=== PATIENT | female | born 1980 | race Caucasian/White ===

== ENCOUNTER → 2020-09-27 11:00 | Outpatient (CLI) | payer BC, SELFPAY ==
[2020-06-21 15:19] VITALS: BMI 23.1
[2020-09-29 20:48] LABS: HPV APTIMA, High Risk Negative (Negative)
== END ==
PROVIDERS: Visit Provider Obstetrics & Gynecology
DX: Z12.4 Encounter for screening for malignant neoplasm of cervix (principal)
CPT/HCPCS: 87624; 88175; G0145

== ENCOUNTER 2021-05-26 10:50 | Emergency (ER) | payer BC, SELFPAY ==
[2021-05-26 10:51] VITALS: BP 127/88; PULSE 116; RESP 16; TEMP 36.2; O2SAT 96; BMI 24.0
--- NOTE | 2021-05-26 11:13 | EDS_ITS ---
HPI History of Present Illness Chief Complaint: Back Informant: patient Onset/Context/Timing Onset: Today (Just within the past 1-2 hours) Context: Sudden Onset Injury: - (While doing CrossFit) Timing: Continuous Quality: Aching Location: Lumbar (Right side without radiation into lower extremities) Current Severity: Moderate Maximum Severity: Severe Worsened by: improves with Movement Relieved by: - (Remaining still with ice against the affected area) Associated Symptoms Associated Symptoms: Negative for Numbness, Tingling, Radiation to Right Leg, Radiation to Left Leg, Abdominal Pain, Unable to Ambulate, Unable to Transfer, Urinary Retention, Urinary Incontinence, Constipation and Fecal Incontinence Narrative Narrative: Patient was doing exertion and a Cross[employer] class and she all of a sudden felt a pop with pain in her right low back without radiation. No history of back problems in the past. [facility] Medical History Abscess of chest Home Medications multivitamin 1 tab PO DAILY 06/21/20 [History Last Taken Unknown] cyclobenzaprine 10 mg PO TID PRN #20 tablet 05/26/21 [Rx Last Taken Unknown] naproxen 500 mg PO BID PRN #14 tab 05/26/21 [Rx Last Taken Unknown] tramadol 50 mg PO Q4H PRN PRN 2 Days #12 tab 05/26/21 [Rx Last Taken Unknown] Allergy/AdvReac Type Severity Reaction Status Date / Time No Known Allergies Allergy Verified 05/26/21 10:53 Family History Father Thyroid disorder Brother Thyroid disorder Surgical History History of incision and drainage Social History Smoking Status: Never smoker second hand exposure: No alcohol intake: current alcohol intake frequency: holidays/special occasions only substance use type: does not use caffeine: Yes what type of physical activity do you participate in: walking, running, aerobics and weight training frequency: 3-4 times per week ROS ROS ED Constitutional Constitutional ED: Denies chills or fever(s) Gastrointestinal Gastrointestinal: Denies abdominal pain, constipation, fecal incontinence, nausea or vomiting Genitourinary Genitourinary ED: Reports other Details: no urinary retention ; Denies abdominal discomfort or urinary incontinence Musculoskeletal Musculoskeletal: Reports as per HPI and back pain; Denies neck pain Integumentary Denies rash or wounds Neurologic Neurologic: Denies headache(s), paresthesias or weakness EXAM Physical Exam Const Vital Signs: 05/26/21 10:51 Temperature 97.2 F L Temperature Source Temporal Pulse Rate 116 H Respiratory Rate 16 Blood Pressure 127/88 H Blood Pressure Mean 101 Pulse Ox 96 Oxygen Delivery Method Room Air Positive well nourished and well developed General Appearance ED: well developed and NAD HEENT Negative for trauma or tenderness Eyes PERRL and EOMs intact bilaterally Neck full ROM and supple GI normal to inspection, nondistended, normoactive bowel sounds, soft to palpation and non-tender Back/Spine normal to inspection Back/Spine Narrative: Patient sitting with her hands on her knees in a chair uncomfortable without tenderness in the affected area right lumbosacral paraspinal musculature. Patient does not indicate pain at the SI joint area. No midline tenderness or step-off. Lumbar Spine / Lower Back: ROM limited, pain with ROM and straight leg raise negative bilaterally; Negative for lumbar spinal tenderness Extremity normal to inspection, full ROM and no pedal edema Neuro oriented x3 and no sensory deficits noted Sensorium / Orientation: alert Motor Exam: strength 5/5 throughout and clonus absent Deep Tendon Reflexes: Rt Patellar (L4): 2+, Lt Patellar (L4): 2+, Rt Ankle (S1): 2+ and Lt Ankle (S1): 2+ Deep Tendon Reflexes Back: Rt Patellar (L4): 2+, Lt Patellar (L4): 2+, Rt Ankle (S1): 2+ and Lt Ankle (S1): 2+ Plantar Reflex: Downgoing: bilateral Psych mental status grossly normal and thought process normal Skin no rashes or lesions noted and no wounds MDM MDM MDM Narrative Medical decision making narrative: Patient was given injections of Toradol and Norflex along with an oral Tupman, x-rays were obtained to ensure there are no step-offs or abnormalities; they were as below with spondylolisthesis L4-5, L5- S1. This is nonspecific. She has no radicular symptoms or findings. Will be discharged with medications for supportive care and outpatient follow-up as needed. Radiography Diagnostic Testing: Clinical Impression(s) from Imaging Studies Lumbar Spine X-Ray 05/26/21 11:24 IMPRESSION: Degenerative changes of the spine, as detailed above. Electronically Signed: Julian Willson MD at 11:56 EDT , Service support , Discharge Plan Triage Chief Complaint: Back ED Provider: Beto Enamorado Dx/Rx/DC Orders Clinical Impression: Acute lumbosacral myofascial strain Instructions: ED Back Sprain/Strain Prescriptions: New cyclobenzaprine [cyclobenzaprine] 10 MG tablet 10 mg PO TID PRN (Reason: Muscle Spasm) Qty: 20 RF: 0 tramadol 50 MG tablet 50 mg PO Q4H PRN PRN (Reason: Pain) 2 Days Qty: 12 RF: 0 naproxen 500 MG tablet 500 mg PO BID PRN Qty: 14 RF: 0 No Action multivitamin Tablet 1 tab PO DAILY RF: 0 Primary Care Provider: Kevin Kingston NP Referrals: Kevin Kingston NP, REFERRAL CLERK-C [Primary Care Provider] - 1 Week if not improving Disposition Disposition: Home, Self Care
[2021-05-26] MEDS: Orphenadrine 60 MG/2 ML Ampul IM (11:16)
[2021-05-26] MEDS: HYDROcodone Bitartrate/Apap 5/325 Tablet PO (11:16)
[2021-05-26] MEDS: Ketorolac 60 MG/2 ML Vial IM (11:16)
--- NOTE | 2021-05-26 11:24 | RAD_ITS ---
STUDY: X-RAY - LUMBAR SPINE REASON FOR EXAM: Female, 40 years old. Injury TECHNIQUE: 3 view(s) of the lumbar spine were obtained. COMPARISON: None FINDINGS: Normal lumbar lordosis. There is a minimal levoscoliosis of the lumbar spine. There is a normal alignment of the vertebrae. Mild degree of spondylolisthesis and disc space narrowing at the L4-L5 and L5-S1 levels. The soft tissue structures are unremarkable. RAD/Lumbar Spine 2 or 3 Views IMPRESSION: Degenerative changes of the spine, as detailed above. Electronically Signed: Julian Willson MD at 11:56 EDT , Service support ,
[2021-05-26] MEDS: Ondansetron ODT 4 MG Tablet 8 MG PO (12:56)
== END 2021-05-26 12:57 | disposition home or self-care (01) ==
PROVIDERS: Emergency Provider Emergency Medicine; PCP Nurse Practitioner Family
DX: S39.012A Strain of muscle, fascia and tendon of lower back, initial encounter (principal); X58.XXXA Exposure to other specified factors, initial encounter
CPT/HCPCS: 72100; 96372; 99283; A4216

== ENCOUNTER 2022-12-19 07:25 | Emergency (ER) | payer BC, SELFPAY ==
[2022-12-19 07:25] VITALS: BP 162/85; PULSE 158; RESP 18; TEMP 36.7; O2SAT 100; BMI 25.3
--- NOTE | 2022-12-19 07:32 | RAD_ITS ---
STUDY: X-RAY CHEST REASON FOR EXAM: Female, 42 years old. Tachycardia TECHNIQUE: Frontal view of the chest COMPARISON: None. FINDINGS: The lungs are clear. There are no pleural effusions. There is no pneumothorax. The heart is normal in size. The visualized osseous structures are within normal limits. RAD/Chest 1 View (Portable) IMPRESSION: No acute thoracic pathology. Electronically Signed: Josiah Gonzalez MD at 8:07 EDT ,
--- NOTE | 2022-12-19 07:34 | EX.ED.DYSGE1 ---
HPI History of Present Illness Chief Complaint: Palpitations Detail of Chief Complaint: Palpitations and racing heart Informant: patient and spouse/S.O. Narrative Narrative: Patient presents to the emergency department with palpitations that started this morning around 6 AM when her alarm went off. Patient describes a funny feeling. She denies chest pain. She does feel a little bit short of breath with activity. She denies recent travel or surgery. She did have 2 alcoholic beverages yesterday. She denies illicit drug use. Denies recent illness such as vomiting or diarrhea. No history of anxiety or panic attacks. Patient does have history of mitral valve prolapse and tricuspid regurgitation for which she has ultrasounds every several years to evaluate. Patient's last cardiac ultrasound was about 3 years ago. [facility] Medical History (Updated 12/19/22 @ 09:[address] Shelly Candelario DO) Abscess of chest Home Medications propranolol 10 mg tablet 10 mg PO TID #90 tabs 12/19/22 [Rx Last Taken Unknown] Allergy/AdvReac Type Severity Reaction Status Date / Time No Known Allergies Allergy Verified 12/19/22 07:28 Family History Father Thyroid disorder Brother Thyroid disorder Surgical History History of incision and drainage Social History Smoking Status: Never smoker second hand exposure: No alcohol intake: current alcohol intake frequency: holidays/special occasions only substance use type: does not use caffeine: Yes what type of physical activity do you participate in: walking, running, aerobics and weight training frequency: 3-4 times per week ROS ROS ED Review of Systems ROS Unobtainable: other Constitutional Constitutional ED: Reports lethargy; Denies chills, fever(s), sweats or weight loss Eyes Eyes: Denies blurry vision, change in vision or diplopia ENT ENT ED: Denies rhinorrhea or sore throat Cardiovascular Cardiovascular: Reports palpitations and racing heartbeat; Denies chest pain or orthopnea Respiratory/Chest Respiratory/Chest: Reports dyspnea and dyspnea on exertion; Denies cough, orthopnea or sputum Gastrointestinal Gastrointestinal: Denies abdominal pain, diarrhea, nausea or vomiting Genitourinary Genitourinary ED: Denies dysuria, hematuria or urinary frequency Musculoskeletal Musculoskeletal: Denies arthralgias, back pain, myalgias or neck pain Integumentary Denies abscess, Abrasions or rash Neurologic Neurologic: Denies headache(s) or weakness Psychiatric Psychiatric: Denies anxiety, depression or suicidal thoughts Endocrine Endocrinology: Denies polydipsia, polyphagia or polyuria Hematologic/Lymphatic Hematologic/Lymphatic: Denies easy bleeding, easy bruising or lymphadenopathy Allergic/Immunologic Allergic/Immunologic ED: Denies mouth swelling, tongue swelling or urticaria EXAM Physical Exam Const Vital Signs: 12/19/22 07:25 12/19/22 07:48 12/19/22 08:33 Temperature 98.1 F Temperature Source Temporal Pulse Rate 158 H 104 H Respiratory Rate 18 16 Respiratory Effort Normal Blood Pressure 162/85 H 115/71 Blood Pressure Mean 110 85 Pulse Ox 100 99 Oxygen Delivery Method Room Air Room Air Positive well nourished and well developed General Appearance ED: well developed and NAD HEENT Reports TM's clear and moist mucous membranes normocephalic and atraumatic; Negative for trauma or tenderness Tympanic Membrane ED: Yes TM's clear Eyes PERRL and EOMs intact bilaterally General Eye ED: Negative for pale conjunctiva or scleral icterus Neck no lymphadenopathy, supple and no JVD General: Negative for tenderness Chest Wall inspection of chest normal and palpation of chest normal Chest: Negative for tenderness Resp normal respiratory effort and clear to auscultation bilaterally Effort and Inspection: Negative for respiratory distress or pain with movement Auscultation: Negative for rhonchi, wheezes or diminished lung sounds Cardio regular rhythm, S1 normal heart sound, S2 normal heart sound and no murmurs Rate: tachycardic Peripheral Pulses: pulses 2+ throughout GI normal to inspection, nondistended, normoactive bowel sounds, soft to palpation, non-tender, non-distended and no masses Back/Spine no CVA tenderness and no thoracic nor lumbar tenderness Extremity normal to inspection General Extremety ED: Negative for edema General Extremity: Negative for edema Neuro oriented x3, CN's II-XII intact bilaterally, no sensory deficits noted and gait normal Sensorium / Orientation: awake, alert, oriented to person, oriented to place and oriented to time Motor Exam: strength 5/5 throughout and strength abnormal Psych mental status grossly normal Skin no rashes or lesions noted and no wounds MDM MDM MDM Narrative Medical decision making narrative: Patient presents with tachycardia. In the differential would be A-fib versus SVT versus other dysrhythmia. Entertain possibility of PE however she really has no significant history for PE or risk factors. Patient placed on a shelter monitor on arrival. EKG obtained showed sinus tachycardia with a rate of 131 bpm with no acute ST segment changes. CBC with differential was unremarkable. Chemistries were unremarkable other than a slightly depressed potassium of 3.2 for which I did give her 40 mEq of potassium chloride p.o. Patient had a normal D-dimer therefore I feel PE is ruled out. With a normal H&H and no signs of bleeding I do not feel her symptoms related to anemia. Troponin was normal. Chest x-ray was normal. I did add a test which was negative and I also added a TSH. TSH came back low at less than 0.01. On further questioning patient states that she actually thinks she has had fast heart rates for over a month as her 's mention it when he was laying in bed next to her. Patient also has had some heat intolerance. She has a family history of hypothyroidism. Case discussed with Dr. Kenneth Gooden of endocrinology who asked that I start patient on propranolol. She will follow-up patient in the office. Lab Data Attestation: I reviewed the patient's lab results. Labs: Laboratory Results - last 24 hr 12/19/22 12/19/22 12/19/22 07:40 07:40 07:40 WBC 5.0 RBC 5.16 Hgb 14.7 Hct 43.4 MCV 84.1 MCH 28.5 MCHC 33.9 RDW Std Deviation 39.2 RDW Coeff of Shoaib 12.8 Plt Count 243 MPV 8.5 Immature Gran % (Auto) 0.200 Neut % (Auto) 65.8 Lymph % (Auto) 21.9 Travis % (Auto) 9.7 Eos % (Auto) 2.0 Baso % (Auto) 0.4 Absolute Neuts (auto) 3.3 Absolute Lymphs (auto) 1.09 Nucleated RBC % 0 D-Dimer Quant (PE/DVT) 0.36 Sodium 144 Potassium 3.2 L Chloride 111 H Carbon Dioxide 23.0 Anion Gap 10 BUN 8 Creatinine 0.58 Estim Creat Clear Calc 111.34 Est GFR (MDRD) Af Amer 147 Est GFR (MDRD) Non-Af 121 BUN/Creatinine Ratio 13.7 Glucose 112 H Calcium 8.8 Troponin I High Sens 6 TSH Serum , Qual 12/19/22 12/19/22 08:10 08:10 WBC RBC Hgb Hct MCV MCH MCHC RDW Std Deviation RDW Coeff of Shoaib Plt Count MPV Immature Gran % (Auto) Neut % (Auto) Lymph % (Auto) Travis % (Auto) Eos % (Auto) Baso % (Auto) Absolute Neuts (auto) Absolute Lymphs (auto) Nucleated RBC % D-Dimer Quant (PE/DVT) Sodium Potassium Chloride Carbon Dioxide Anion Gap BUN Creatinine Estim Creat Clear Calc Est GFR (MDRD) Af Amer Est GFR (MDRD) Non-Af BUN/Creatinine Ratio Glucose Calcium Troponin I High Sens TSH < 0.01 L Serum , Qual NEGATIVE Radiography Diagnostic Testing: Clinical Impression(s) from Imaging Studies Chest X-Ray 12/19/22 07:32 IMPRESSION: No acute thoracic pathology. Electronically Signed: Josiah Gonzalez MD at 8:07 EDT , 1 view chest x-ray obtained interpreted by myself as no evidence of infiltrate or pneumothorax or acute disease process. Radiology in agreement. EKG Initial EKG: Attestation: I personally reviewed and interpreted this EKG as follows: Comments: Sinus tachycardia with a rate of 131 bpm with no acute ST segment changes. Discharge Plan Triage Chief Complaint: Palpitations ED Provider: Shelly Candelario Dx/Rx/DC Orders Clinical Impression: Hyperthyroidism, Tachycardia Instructions: ED Hyperthyroidism, ED Palpitations, ED Tachycardia: PAT Prescriptions: New propranolol 10 mg tablet 10 mg PO TID Qty: 90 0RF Primary Care Provider: Kevin Kingston NP Referrals: Rene Gooden MD [Med Staff - Courtesy Staff] - As soon as possible Kevin Kingston NP, MANAGER ACCESS-C [Primary Care Provider] - Disposition Disposition: Home, Self Care
--- NOTE | 2022-12-19 07:35 | NURSING ---
NO OLD EKGS
[2022-12-19] MEDS: 0.9% Normal Saline 1,000 ML 150 ML IV (07:44)
[2022-12-19 07:47] LABS: Absolute Lymphocyte Count 1.09 X10^3/uL (0.83-4.51); Absolute Neutrophil Count 3.3 X10^3/uL (2.0-7.7); Basophil# 0.02 X10^3/uL; Basophil% 0.4 % (0-1); Hematocrit 43.4 % (37-47); Hemoglobin 14.7 g/dL (12.0-15.0); Lymphocyte # 1.09 X10^3/ul (0.83-4.51); Lymphocyte % 21.9 % (19-41); Mean Corp Hgb Conc 33.9 g/dL (32-36); Mean Corpuscular Hgb 28.5 pg (27.0-32.0); Mean Corpuscular Volume 84.1 fL (81-99); Mean Platelet Vol. 8.5 fl (6.2-12.0); Monocyte# 0.48 X10^3/uL; Monocyte% 9.7 % (0-10); NRBC Flagged by Analyzer 0 % (0-5); Neutrophil # 3.27 X10^3/uL (2.7-7.7); Neutrophil % 65.8 % (47-70); Platelet Count 243 K/mm3 (150-450); RBC Distribution Width CV 12.8 % (11.6-14.6); RBC Distribution Width SD 39.2 fl (35.1-43.9); Red Blood Count 5.16 M/mm3 (4.2-5.4)
[2022-12-19 07:58] LABS: D-Dimer Quantitative (DVT/PE) 0.36 FEU/ug/m (0.27-0.49)
[2022-12-19 08:04] LABS: Anion Gap 10 (5-15); BUN 8 mg/dL (7-18); BUN/Creat Ratio 13.7 RATIO (10-20); Calcium,Total 8.8 mg/dL (8.5-10.1); Chloride 111 mmol/L (98-107); Creatinine, Serum 0.58 mg/dL (0.55-1.02); EST Glomerular Filtration Rate 121 mL/min (>60); Est Glom Filt Rate - Afr Amer 147 mL/min (>60); Estimated Creatinine Clearance 111.34 ml/min; Glucose 112 mg/dL (74-106); Potassium 3.2 mmol/L (3.5-5.1); Sodium Level 144 mmol/L (136-145); Troponin-I HS 6 pg/mL (3.0-54.0)
[2022-12-19] MEDS: Potassium Chloride Oral Tablet 20 MEQ 40 MEQ PO (08:20)
[2022-12-19 08:30] LABS: Internal QC Validated? YES +Cl - CLEAR BKGD; Pregnancy, Serum, hCG Quali. NEGATIVE Negative
[2022-12-19 08:33] VITALS: BP 115/71; PULSE 104; RESP 16; O2SAT 99
[2022-12-19 08:51] LABS: Thyroid Stim Hormone (TSH) < 0.01 uIU/mL (0.358-3.74)
[2022-12-19 09:56] VITALS: BP 118/74; PULSE 109; RESP 16; O2SAT 99
== END 2022-12-19 09:56 | disposition home or self-care (01) ==
PROVIDERS: Emergency Provider Emergency Medicine; PCP Nurse Practitioner Family; Visit Provider Emergency Medicine
DX: E05.90 Thyrotoxicosis, unspecified without thyrotoxic crisis or storm (principal); R00.2 Palpitations; E87.6 Hypokalemia; I08.1 Rheumatic disorders of both mitral and tricuspid valves; R06.00 Dyspnea, unspecified
CPT/HCPCS: 71045; 80048; 84443; 84484; 84703; 85025; 85379; 93005; 99285; J7030; A4216

== ENCOUNTER → 2023-01-17 | Outpatient (CLI) | payer BC, SELFPAY ==
[2023-01-17 10:44] LABS: T4 Free Direct 1.11 ng/dL (0.76-1.46); Thyroid Stim Hormone (TSH) < 0.01 uIU/mL (0.358-3.74)
== END | disposition home or self-care (01) ==
LOC: LAB 09:02
PROVIDERS: PCP Nurse Practitioner Family; Referring Provider Internal Medicine Endocrinology, Diabetes & Metabolism; Visit Provider Internal Medicine Endocrinology, Diabetes & Metabolism
DX: E05.90 Thyrotoxicosis, unspecified without thyrotoxic crisis or storm (principal)
CPT/HCPCS: 36415; 84439; 84443; 84481

== ENCOUNTER → 2023-02-12 | Outpatient (CLI) | payer BC, SELFPAY ==
[2023-02-12 17:35] LABS: Free T3 2.9 pg/mL (2.18-3.98); T4 Free Direct 0.85 ng/dL (0.76-1.46); Thyroid Stim Hormone (TSH) < 0.01 uIU/mL (0.358-3.74)
== END | disposition home or self-care (01) ==
PROVIDERS: PCP Nurse Practitioner Family; Referring Provider Internal Medicine Endocrinology, Diabetes & Metabolism; Visit Provider Internal Medicine Endocrinology, Diabetes & Metabolism
DX: E05.90 Thyrotoxicosis, unspecified without thyrotoxic crisis or storm (principal)
CPT/HCPCS: 36415; 84439; 84443; 84481

== ENCOUNTER → 2023-03-30 | Outpatient (CLI) | payer BC, SELFPAY ==
[2023-03-30 15:17] LABS: Free T3 2.1 pg/mL (2.18-3.98); T4 Free Direct 0.68 ng/dL (0.76-1.46); Thyroid Stim Hormone (TSH) 0.54 uIU/mL (0.358-3.74)
== END | disposition home or self-care (01) ==
LOC: LAB 14:05
PROVIDERS: PCP Nurse Practitioner Family; Referring Provider Internal Medicine Endocrinology, Diabetes & Metabolism; Visit Provider Internal Medicine Endocrinology, Diabetes & Metabolism
DX: E05.90 Thyrotoxicosis, unspecified without thyrotoxic crisis or storm (principal)
CPT/HCPCS: 36415; 84439; 84443; 84481

== ENCOUNTER → 2023-04-23 | Outpatient (CLI) | payer BC, SELFPAY ==
[2023-04-23 12:50] LABS: Vitamin B12 688 pg/mL (211-911)
[2023-04-23 13:00] LABS: Free T3 2.3 pg/mL (2.18-3.98); T4 Free Direct 0.79 ng/dL (0.76-1.46); Thyroid Stim Hormone (TSH) 1.48 uIU/mL (0.358-3.74)
== END | disposition home or self-care (01) ==
LOC: LAB 11:29
PROVIDERS: PCP Nurse Practitioner Family; Referring Provider Internal Medicine Endocrinology, Diabetes & Metabolism; Visit Provider Internal Medicine Endocrinology, Diabetes & Metabolism
DX: E05.90 Thyrotoxicosis, unspecified without thyrotoxic crisis or storm (principal); R20.2 Paresthesia of skin
CPT/HCPCS: 36415; 82607; 84439; 84443; 84481

== ENCOUNTER → 2023-06-18 | Outpatient (CLI) | payer BC, SELFPAY ==
[2023-06-18 15:07] LABS: Free T3 2.7 pg/mL (2.18-3.98); T4 Free Direct 0.94 ng/dL (0.76-1.46); Thyroid Stim Hormone (TSH) 0.73 uIU/mL (0.358-3.74)
== END | disposition home or self-care (01) ==
LOC: LAB 14:11
PROVIDERS: PCP Nurse Practitioner Family; Referring Provider Internal Medicine Endocrinology, Diabetes & Metabolism; Visit Provider Internal Medicine Endocrinology, Diabetes & Metabolism
DX: E05.00 Thyrotoxicosis with diffuse goiter without thyrotoxic crisis or storm (principal)
CPT/HCPCS: 36415; 84439; 84443; 84481

== ENCOUNTER → 2023-08-13 | Outpatient (CLI) | payer BC, SELFPAY ==
[2023-08-13 10:02] LABS: Free T3 2.2 pg/mL (2.18-3.98); T4 Free Direct 0.86 ng/dL (0.76-1.46); Thyroid Stim Hormone (TSH) 2.61 uIU/mL (0.358-3.74)
== END | disposition home or self-care (01) ==
LOC: LAB 09:01
PROVIDERS: PCP Nurse Practitioner Family; Referring Provider Internal Medicine Endocrinology, Diabetes & Metabolism; Visit Provider Internal Medicine Endocrinology, Diabetes & Metabolism
DX: E05.90 Thyrotoxicosis, unspecified without thyrotoxic crisis or storm (principal)
CPT/HCPCS: 36415; 84439; 84443; 84481

== ENCOUNTER → 2024-01-07 | Outpatient (CLI) | payer BC, SELFPAY ==
[2024-01-07 11:39] LABS: Free T3 2.9 pg/mL (2.18-3.98); T4 Free Direct 0.98 ng/dL (0.76-1.46); Thyroid Stim Hormone (TSH) 1.55 uIU/mL (0.358-3.74)
== END | disposition home or self-care (01) ==
LOC: LAB 09:26
PROVIDERS: PCP Nurse Practitioner Family; Referring Provider Internal Medicine Endocrinology, Diabetes & Metabolism; Visit Provider Internal Medicine Endocrinology, Diabetes & Metabolism
DX: E05.00 Thyrotoxicosis with diffuse goiter without thyrotoxic crisis or storm (principal)
CPT/HCPCS: 36415; 84439; 84443; 84481

== ENCOUNTER → 2024-07-07 | Outpatient (CLI) | payer BC, SELFPAY ==
[2024-07-07 11:13] LABS: Free T3 2.8 pg/mL (2.18-3.98); T4 Free Direct 1.08 ng/dL (0.76-1.46)
== END | disposition home or self-care (01) ==
LOC: LAB 08:56
PROVIDERS: PCP Nurse Practitioner Family; Referring Provider Internal Medicine Endocrinology, Diabetes & Metabolism; Visit Provider Internal Medicine Endocrinology, Diabetes & Metabolism
DX: E05.00 Thyrotoxicosis with diffuse goiter without thyrotoxic crisis or storm (principal)
CPT/HCPCS: 36415; 84439; 84443; 84481

== ENCOUNTER → 2024-11-28 | Outpatient (CLI) | payer BC, SELFPAY ==
--- NOTE | 2024-11-28 09:04 | BI_ITS ---
EXAM: DIAG MAMM W/CAD, BILAT; BREAST LIMITED UNILATERAL; BILAT BRST ALLI STAND ALONE 11/28/2024 CLINICAL HISTORY: 44-year-old female presents with palpable concern in the right breast. No family history of breast cancer. TECHNIQUE: Bilateral Diagnostic digital breast tomosynthesis with 2D and 3D images. Computer aided detection. Also, targeted right breast ultrasound was performed. COMPARISON: Baseline examination, no priors. FINDINGS: MAMMOGRAM: TISSUE DENSITY: The breast tissue is heterogenously dense, which may obscure small masses. Right breast: There is a triangle skin marker indicating the area of palpable concern in the right breast. Underlying the skin marker is an circumscribed round mass. Also, there are multiple circumscribed masses scattered throughout the right breast. There are a mass with associated coarse calcifications in the upper-outer right breast at posterior depth. During the examination, the patient had yellowish right nipple discharge. Left breast: There are multiple circumscribed masses scattered throughout the left breast. Otherwise, there are no suspicious findings in the left breast. ULTRASOUND: Ultrasound performed of the area of patient's palpable concern corresponds to a cyst at 11 o'clock 2 cm from the nipple, measuring 3.3 x 1.8 x 1.7 cm. There is a oval circumscribed hypoechoic in the right breast at 10 o'clock 5 cm from the nipple, measuring 1.3 x 1.0 x 0.6 cm. This may correlate to the mass with coarse calcifications in the upper-outer right breast visualized lies mammographically. Also, there is a hypoechoic mass in the retroareolar 3 o'clock right breast measuring 1.0 x 0.6 x 0.6 cm. There are multiple dilated ducts in the retroareolar right breast without evidence of intraductal mass or debris. BI/Bilat Brst Alli Stand Alone IMPRESSION: 1. The patient's area of palpable concern in the right breast correlates to a benign cyst. 2. Probably benign masses in the right breast at 10 o'clock 5 cm from the nipp le and 3 o'clock retroareolar. Recommend short interval diagnostic ultrasound of the right breast with in six-months for furth er evaluation. 3. Dilated ducts in the retroareolar right breast are benign. OVERALL FINAL ASSESSMENT: BIRADS 3 PROBABLY BENIGN. RECOMMENDATION: Short interval follow-up. A letter with findings and recommendations will be mailed to the patient. Reading Location: [id number]
== END | disposition home or self-care (01) ==
PROVIDERS: Referring Provider Nurse Practitioner Women's Health; Visit Provider Nurse Practitioner Women's Health
DX: N63.10 Unspecified lump in the right breast, unspecified quadrant (principal)
CPT/HCPCS: 76642; 77062; 77066; G0279

== ENCOUNTER → 2024-12-02 | Outpatient (CLI) | payer BC, SELFPAY ==
[2024-12-05 13:08] LABS: HPV APTIMA, High Risk Negative (Negative)
== END | disposition home or self-care (01) ==
LOC: LABSPEC 15:38
PROVIDERS: Referring Provider Advanced Practice Midwife; Visit Provider Advanced Practice Midwife
DX: Z12.4 Encounter for screening for malignant neoplasm of cervix (principal)
CPT/HCPCS: 87624; 88175; G0145

== ENCOUNTER → 2024-12-12 | Outpatient (CLI) | payer BC, SELFPAY ==
[2024-12-14 08:08] LABS: PROLACTIN 14.5 ng/mL (4.8-33.4)
== END | disposition home or self-care (01) ==
LOC: LAB 09:01
PROVIDERS: Referring Provider Nurse Practitioner Women's Health; Visit Provider Nurse Practitioner Women's Health
DX: N64.52 Nipple discharge (principal)
CPT/HCPCS: 36415; 84146

== ENCOUNTER → 2025-01-05 | Outpatient (CLI) | payer BC, SELFPAY ==
[2025-01-05 11:07] LABS: Free T3 3.3 pg/mL (2.18-3.98)
--- OUTSIDE RECORDS SUMMARY | 2025-01-05 21:12 | XMS RPT_ITS | CCD ---
Author Organization [facility] [employer]ini[employer] Care Team Providers Care Coding Quality Analyst Name Role Phone Vashti WIDE AREA NETWORK ENGINEER, WIDE AREA NETWORK ENGINEER-C Kevin Cordero Primary Care Pr ovider Vashti WIDE AREA NETWORK ENGINEER, WIDE AREA NETWORK ENGINEER-C Kevin Cordero Referring Provi ruth ann Dr. Rene Gooden Attending Provider Kevin Kingston CNP Primary Care Provider [phone] ARNOL LEONARD Attending Unavailable KEVIN KINGSTON Primary Care Unavailable Vashti WIDE AREA NETWORK ENGINEER, WIDE AREA NETWORK ENGINEER-C Kevin Cordero Primary Care Pr ovider Vashti WIDE AREA NETWORK ENGINEER, WIDE AREA NETWORK ENGINEER-C Kevin Cordero Referring Provi ruth ann Dr. Rene Gooden Attending Provider Vashti WIDE AREA NETWORK ENGINEER, WIDE AREA NETWORK ENGINEER-C Kevin Cordero Primary Care Pr ovider Vashti WIDE AREA NETWORK ENGINEER, WIDE AREA NETWORK ENGINEER-C Kevin Cordero Referring Provi ruth ann Dr. Rene Gooden Attending Provider Vashti WIDE AREA NETWORK ENGINEER-CKevin Primary Care Provi ruth ann Vashti WIDE AREA NETWORK ENGINEER-CKevin Referring Provider Roula Miranda Attending Provider Roula Miranda Referring Provider Care Physician, No Primary Primary Care Provider Unavailable Francie Nuñez CNM Attending Provider [phone] Francie Nuñez CNM Referring Provider [phone] Kevin Kingston NP Referring Unav ailable Care Physician, No Primary Primary Care Unava ilable Francie Nuñez Attending Unavailable Rene Gooden Attending Unavailable [place] WIDE AREA NETWORK ENGINEER, Kevin Cordero Referring Unav ailable [place] WIDE AREA NETWORK ENGINEER, Kevin Cordero Primary Care Unav ailable Giacomo, Rene Attending Unavailable [place] WIDE AREA NETWORK ENGINEER, Kevin Cordero Referring Unav ailable Vashti WIDE AREA NETWORK ENGINEER, Kevin Cordero Primary Care Unav ailable Giacomo, Rene Attending Unavailable [place] WIDE AREA NETWORK ENGINEER, Kevin Cordero Referring Unav ailable Care Physician, No Primary Primary Care Unava ilable Morena WIDE AREA NETWORK ENGINEER, Roula Attending Unavailable [place] WIDE AREA NETWORK ENGINEER, Kevin Cordero Referring Unav ailable [place] WIDE AREA NETWORK ENGINEER, Kevin Cordero Primary Care Unav ailable Giacomo, Rene Attending Unavailable Giacomo, Rene Referring Unavailable Vashti WIDE AREA NETWORK ENGINEER, Kevin Cordero Primary Care Unav ailable [place] WIDE AREA NETWORK ENGINEER, Roula Attending Unavailable Morena WIDE AREA NETWORK ENGINEER, Roula Referring Unavailable Care Physician, No Primary Primary Care Unava ilable Joaquin, Francie Attending Unavailable Joaquin, Francie Referring Unavailable Care Physician, No Primary Primary Care Unava ilable [place]na WIDE AREA NETWORK ENGINEER, Roula Attending Unavailable [place] WIDE AREA NETWORK ENGINEER, Roula Referring Unavailable Care Physician, No Primary Primary Care Unava ilable , Rene Attending Unavailable , Rene Referring Unavailable Vashti WIDE AREA NETWORK ENGINEER, Kevin Cordero Primary Care Unav ailable King LEONIE, Dr. López Attending Provider Medications Current Medications Medication Drug Class(es) Dates Sig (Normalized) Sig (Original) methIMAzole 5 mg oral tablet (20 sources) Thyroid Hormone Synthesis Inhibitor Start: 04-02-2023 End: 01-05-2025 Methimazole 5 mg tablet Active 5 mg PO .Sun-SundayJanuary 05, 2025 8:41am Start: 12-25-2022 End: 04-02-2023 take 1 tablet by mouth once daily Methimazole 10 mg tablet Discontinued 10 mg PO DAILY 45 February 27, 2023 12:48pm April 02, 2023 8:42am take 1 tablet by preeti th three times daily methIMAzole (TAPAZOLE) 10 mg tablet Take 10 mg by mouth three times daily. 0 Active Comment on above: Take 10 mg by mouth three times daily. Multivitamin tablet (5 sources) Start: 11-11-2024 Multivitamin tablet Active 1 {tbl} PO EVERY MORNING November 11, 2024 12:00am Completed/Discontinued Medications Medication Drug Class(es) Dates Sig (Normalized) Sig (Original) levoFLOXacin 500 mg oral tablet (1 source) Quinolone Antimicrobial Start: 02-20-2023 take 1 tablet by mouth once daily levoFLOXacin (LEVAQUIN) 500 mg tablet Take 1 tablet by mouth once daily. 10 tablet 0 02/20/2023 Active Comment on above: Take 1 tablet by preeti th once daily. propranolol hydrochloride 10 mg oral tablet (10 sources) beta-Adrenergic Brandee Start: 12-19-2022 End: 04-02-2023 take 1 tablet by mouth three times daily Propranolol 10 mg tablet Discontinued 10 mg PO THREE TIMES A DAY 90 December 19, 2022 12:00am April 02, 2023 8:26am sulfamethoxazole 400 mg / trimethoprim 80 mg oral tablet (1 source) Dihydrofolate Reductase Inhibitor Antibacterial, Sulfonamide Antimicrobial End: 02-20-2023 take 1 tablet by mouth twice daily sulfamethoxazole- trimethoprim (BACTRIM) 400-80 mg per tablet Take 1 tablet by mouth twice daily. Infected sebaceous cyst 0 02/20/2023 Discontinued (Course of therapy completed) Comment on above: Take 1 tablet by preeti twice daily. Infected sebaceous cyst Problems Problem Classification Problem Date Documented Date Episodic/Chronic Cardiac dysrhythmias (10 sources) Tachycardia; Translations: [Tachycardia, unspecified] 12-19-2022 Episodic Nonmalignant breast conditions (17 sources) Discharge from the breast; Translations: [Nipple discharge] Onset: 12-02-2024 12-01-2024 Episodic Comment on above: rpt R diag mammo and US 6mo per MH Other nervous system disorders (8 sources) Paresthesia; Translations: [Paresthesia of skin] 04-02-2023 Episodic Other nervous system disorders (2 sources) Paresthesia of skin; Translations: [Disturbance of skin sensation] 04-02-2023 Episodic Other screening for suspected conditions (not mental disorders or infectious disease) (1 source) Encounter for screening for malignant neoplasm of cervix; Translations: [Encounter for screening for malignant neoplasm of cervix] Onset: 12-05-2024 Episodic Pleurisy; pneumothorax; pulmonary collapse (10 sources) Abscess of thorax; Translations: [Pyothorax without fistula] 06-21-2020 Episodic Residual codes; unclassified (10 sources) Past history of procedure; Translations: [Other specified postprocedural states] 06-21-2020 Episodic Comment on above: Chest lesion- 2017re current lesion- 06/21/2020 Skin and subcutaneous tissue infections (1 source) Cellulitis and abscess of trunk; Translations: [Cellulitis of trunk, unspecified] 02-20-2023 Episodic Sprains and strains (10 sources) Lower back injury; Translations: [Strain of muscle, fascia and tendon of lower back, initial encounter] 06-03-2021 Episodic Thyroid disorders (20 sources) Hyperthyroidism; Translations: [Thyrotoxicosis, unspecified without thyrotoxic crisis or storm] Onset: 08-08-2024 12-19-2022 Chronic Results Test Name Value Interpretation Reference Range Facility PROLACTIN 4465on 12-14-2024 PROLACTIN 14.5 ng/mL Normal 4.8-33.4 [facility] Comment on above: Result Comment: Perf ormed at: [facility] [address] [id number] Drying Machine Receiver: Konstantin Jones PhD, Phone: [phone] Performed By: #### L 3100.5400 ####[facility] [address] [place], [address] Serum or plasma prolactin me asurement (mass/volume)Ordered By: Roula Berg on 12-12-2024 Prolactin [Mass/Vol] 14.5 ng/mL 4.8-33.4 [facility] Comment on above: Performed at: [facility] [address] [id number] Director: Konstantin Jones PhD, Phone: [phone] PAP IG HPV APTIMA 16/18,45on 12-05-2024 ADEQ Comment Normal . [facility] Comment on above: Order Comment: Speci men Comment: [id number] Comment: No. of containers..01 ThinPrep Vial Result Comment: Sati sfactory for evaluation. No endocervical component is identified. Performed By: #### L 7400.0280 ####[facility] [address] [place], [address] COMM . Normal . [facility] Comment on above: Order Comment: Speci men Comment: [id number] Comment: No. of containers..01 ThinPrep Vial Performed By: #### L 7400.0280 ####[facility] [address] [place], [place], [id number] COMMENT Comment Normal . [facility] Comment on above: Order Comment: Speci men Comment: [id number] Comment: No. of containers..01 ThinPrep Vial Result Comment: This liquid based ThinPrep(R) pap test was screened with the use of an image guided system. Performed By: #### L 7400.0280 ####[facility] [address] [place], [place], [id number] DIAG Comment Normal . [facility] Comment on above: Order Comment: Speci men Comment: [id number] Comment: No. of containers..01 ThinPrep Vial Result Comment: NEGA TIVE FOR INTRAEPITHELIAL LESION OR MALIGNANCY. Performed By: #### L 7400.0280 ####[facility] [address] [place], [address] HPV APTIMA, HR Negative Normal Negative [facility] Comment on above: Order Comment: Speci men Comment: [id number] Comment: No. of containers..01 ThinPrep Vial Result Comment: This nucleic acid amplification test detects fourteen high- risk HPV types (16,18,31,33,35,39,45,51,52,56,58,59,66,68) without differentiation. Performed By: #### L 7400.0280 ####[facility] [address] [place], [address] HPV Doreen Rfx Comment Normal . [facility] Comment on above: Order Comment: Speci men Comment: [id number] Comment: No. of containers..01 ThinPrep Vial Result Comment: Crit eria not met, HPV Genotype not performed. Performed at: [address] [id number] Drying Machine Receiver: Yadira Ng MD, Phone: [phone] Performed at: =[address] [id number] Drying Machine Receiver: Yadira Ng MD, Phone: [phone] Performed By: #### L 7400.0280 ####[facility] [address] [place], [place], [address] PAPSMR Comment Normal . [facility] Comment on above: Order Comment: Speci men Comment: [id number] Comment: No. of containers..01 ThinPrep Vial Result Comment: The Pap smear is a screening test designed to aid in the detection of premalignant and malignant conditions of the uterine cervix. It is not a diagnostic procedure and should not be used as the sole means of detecting cervical cancer. Both false-positive and false-negative reports do occur. Performed By: #### L 7400.0280 ####[facility] [address] [place], [place], [id number] PERFORM Comment Normal . [facility] Comment on above: Order Comment: Speci men Comment: [id number] Comment: No. of containers..01 ThinPrep Vial Result Comment: Fermin Blunt, Paid Search Specialist (ASCP) Performed By: #### L 7400.0280 ####[facility] [address] [place], [place], [address] Cervical or vaginal specimen microscopic examination by liquid based cytology (reportOrdered By: Francie Nuñez on 12-02-2024 Cytology report Cyto stain.thin prep Doc (Cvx/Vag) Comment . [facility] Comment on above: Criteria not met, HP V Genotype not performed.Performed at: [address] [id number] Director: Yadira Ng MD, Phone: [phone] at: =[address], [place], [place] [id number] Director: Yadira Ng MD, Phone: [phone] Cervical or vagninal specime n microscopic examination by cytology stain (reported asOrdered By: Francie Nuñez on 12-02-2024 Cytology report Cyto stain Doc (Cvx/Vag) Comment . [facility] Comment on above: The Pap smear is a s creening test designed to aid in thedetection of premalignant and malignant conditions of theuterine cervix. It is not a diagnostic procedure andshould not be used as the sole means of detecting cervicalcancer. Both false-positive and false-negative reports dooccur. Detection in cervical specim en of any of human papilloma virus (HPV) 16, 18, 31, 33,Ordered By: Francie Nuñez on 12-02-2024 HPV 16+18+31+33+35+39+45+5 1+52+56+58+59+66+68 DNA Probe+sig amp Ql (Cvx) Negative Negative [facility] Comment on above: This nucleic acid am plification test detects fourteen high- risk HPV types (16,18,31,33,35,39,45,51,52,56,58,59,66,68)without differentiation. Laboratory - CytologyOrdered By: Francie Nuñez on 12-02-2024 Paid Search Specialist Cyto stain Nom (Cvx/Vag) [ID] Comment . [facility] Comment on above: Mohamud Blunt, Paid Search Specialist (ASCP) Laboratory - Miscellaneous t estsOrdered By: Francie Nuñez on 12-02-2024 Service comment (Unsp spec) [Interp] . . [facility] No Panel InformationOrdered By: Francie Nuñez on 12-02-2024 Pap Smear Specimen Adequacy Comment . [facility] Comment on above: Satisfactory for guevara luation. No endocervical component is identified. 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 Loader Required: No Is patient in pain?: No Allergies No Known Allergies Allergy (Verified 12/02/24 13:50) Medications ???Medication ???Instructions ???Recorded ???Confirmed ???Type methimazole 5 mg tablet 5 mg PO .Sun-Sunday #90 tabs 12/02/24 Rx multivitamin 1 tab PO QAM 11/11/24 12/02/24 His tory Is last menstrual period known: Yes Last Menstrual Period: 11/25/24 Post menopausal: No Patient : No : No Control Method: vasectomy PFSH Medical History Paresthesias Thyrotoxicosis Abscess of chest Surgical History History of incision and drainage Family History Father Thyroid disorder Brother Thyroid disorder Social History household members: spouse current occupational status: employed current occupation: [employer] Smoking Status: Never smoker second hand exposure: No alcohol intake: current alcohol intake frequency: holidays/special occasions only substance use type: does not use caffeine: Yes what type of physical activity do you participate in: walking, running, aerobics and weight training frequency: 3-4 times per week seatbelt use: always do you feel safe at home: Yes additional social history: - [employer] History 2 Elective abortions Hx Para 2 Spontaneous abortions Hx # Term Pregnancies Ectopic pregnancies Hx # Pregnancies Multiple births # of living children 2 Past Pregnancies Del. Date Name GA/Weeks Outcome Route Bth Weight Gen Labor Lgth Anesthesia Del Locatn Provider FOB Louise Love HPI Encounter for routine gynecological examination Details: YUDITH PERALES is a 44 year old who presents for annual exam. NO concerns-will be getting repeat imaging in 6 months for right breast mass follow up. Last PAP: 2020; normal. HPV neg. History of abnormal PAP: no. Last mammogram: 2024; benign cyst. History of abnormal mammogram: no. Colon cancer screening: age 47. Other preventative health care screenings: PCP. Female Reproductive History Last Menstrual Period: 11/25/24 Cycle Length: 21-35 Bleeding Duration: 3 Questions: metorrhagia: Yes, sexually active: Yes, dyspareunia: No and PCB: No Menopausal Symptoms: Yes hot flashes and Yes night sweats ROS Const Constitutional: Reports system reviewed and no additional complaints, except as documented and night sweats Cardio Card: Reports system reviewed and no additional complaints, except as documented Resp Resp: Reports system reviewed and no additional complaints, except as documented GI GI: Reports system reviewed and no additional complaints, except as documented : Reports system reviewed and no additional complaints, except as documented and hot flashes; Denies difficulty voiding, dysuria or urinary frequency Skin Skin/Breast: Reports system reviewed and no additional complaints, except as documented Neuro Neuro: Reports system reviewed and no additional complaints, except as documented Psych Psych: Reports system reviewed and no additional complaints, except as documented; Denies anhedonia, anxiety or depression Exam Const General: cooperative, healthy appearing, comfortable and no acute distress Orientation: alert, awake and oriented x3 Neck Neck: normal visual inspection and full ROM Thyroid: thyroid normal Chest Breast inspection: normal inspection of the breasts and normal inspection of the axillae Breast palpation: normal palpation of the breasts and normal palpation of the axillae Resp Effort Inspection: normal respiratory effort, able to speak in complete sentences and symmetric chest movement GI Inspection: normal to inspection Palpation: soft Rectal Exam: visual inspection normal External Female Exam: normal external appearance and normal appearance of the urethra Urethra: normal appearance of the urethra Speculum Exam - Vagina: normal appearance of the vagina and normal vaginal discharge Speculum Exam - Cervix: normal appearance of the cervix and nontender Bimanual Exam- Vagina Brittany (more content not included)... Normal [facility] Demian Stand Aloneo n 11-28-2024 [facility] Demian Stand Alone [facility] Imaging Services [address] [place] [address] Bilat Brst Demian Stand Alone MR#: [id number] Acct: [id number] Name: YUDITH PERALES Rep #: [id number] : 1980 F 44 From: Jordyn Harris MD PCP: Care Physician,No Primary Status: REG CLI Study: Bilat Brst Demian Stand Alone Date of Exam: 04/16 Exam# [id number] Ordering Dr: Roula Berg WIDE AREA NETWORK ENGINEER WIDE AREA NETWORK ENGINEER -C EXAM: DIAG MAMM W/CAD, BILAT; BREAST LIMITED UNILATERAL; BILAT BRST DEMIAN STAND ALONE 11/28/2024 CLINICAL HISTORY: 44-year-old female presents with palpable concern in the right breast. No family history of breast cancer. TECHNIQUE: Bilateral Diagnostic digital breast tomosynthesis with 2D and 3D images. Computer aided detection. Also, targeted right breast ultrasound was performed. COMPARISON: Baseline examination, no priors. FINDINGS: MAMMOGRAM: TISSUE DENSITY: The breast tissue is heterogenously dense, which may obscure small masses. Right breast: There is a triangle skin marker indicating the area of palpable concern in the right breast. Underlying the skin marker is an circumscribed round mass. Also, there are multiple circumscribed masses scattered throughout the right breast. There are a mass with associated coarse calcifications in the upper-outer right breast at posterior depth. During the examination, the patient had yellowish right nipple discharge. Left breast: There are multiple circumscribed masses scattered throughout the left breast. Otherwise, there are no suspicious findings in the left breast. ULTRASOUND: Ultrasound performed of the area of patient's palpable concern corresponds to a cyst at 11 o'clock 2 cm from the nipple, measuring 3.3 x 1.8 x 1.7 cm. There is a oval circumscribed hypoechoic in the right breast at 10 o'clock 5 cm from the nipple, measuring 1.3 x 1.0 x 0.6 cm. This may correlate to the mass with coarse calcifications in the upper-outer right breast visualized lies mammographically. Also, there is a hypoechoic mass in the retroareolar 3 o'clock right breast measuring 1.0 x 0.6 x 0.6 cm. There are multiple dilated ducts in the retroareolar right breast without evidence of intraductal mass or debris. BI/Bilat Brst Demian Stand Alone IMPRESSION: 1. The patient's area of palpable concern in the right breast correlates to a benign cyst. 2. Probably benign masses in the right breast at 10 o'clock 5 cm from the nipple and 3 o'clock retroareolar. Recommend short interval diagnostic ultrasound of the right breast with in six-months for further evaluation. 3. Dilated ducts in the retroareolar right breast are benign. OVERALL FINAL ASSESSMENT: BIRADS 3 PROBABLY BENIGN. RECOMMENDATION: Short interval follow-up. A letter with findings and recommendations will be mailed to the patient. Reading Location: [facility] CC: JERRY Berg; No Primary Care Physician Director Sales And Marketing: Signed Normal [facility] Breast Limited Unilateralon 11-28-2024 Breast Limited Unilateral [facility] Imaging Services [address] [place] [id number] Breast Limited Unilateral MR#: [id number] Acct: [id number] Name: YUDITH PERALES Rep #: [id number] : 1980 F 44 From: Jordyn Harris MD PCP: Care Physician,No Primary Status: REG CLI Study: Breast Limited Unilateral Date of Exam: Exam# [id number] Ordering Dr: Roula Berg NP, NP EXAM: DIAG MAMM W/CAD, BILAT; BREAST LIMITED UNILATERAL; BILAT BRST DEMIAN STAND ALONE 11/28/2024 CLINICAL HISTORY: 44-year-old female presents with palpable concern in the right breast. No family history of breast cancer. TECHNIQUE: Bilateral Diagnostic digital breast tomosynthesis with 2D and 3D images. Computer aided detection. Also, targeted right breast ultrasound was performed. COMPARISON: Baseline examination, no priors. FINDINGS: MAMMOGRAM: TISSUE DENSITY: The breast tissue is heterogenously dense, which may obscure small masses. Right breast: There is a triangle skin marker indicating the area of palpable concern in the right breast. Underlying the skin marker is an circumscribed round mass. Also, there are multiple circumscribed masses scattered throughout the right breast. There are a mass with associated coarse calcifications in the upper-outer right breast at posterior depth. During the examination, the patient had yellowish right nipple discharge. Left breast: There are multiple circumscribed masses scattered throughout the left breast. Otherwise, there are no suspicious findings in the left breast. ULTRASOUND: Ultrasound performed of the area of patient's palpable concern corresponds to a cyst at 11 o'clock 2 cm from the nipple, measuring 3.3 x 1.8 x 1.7 cm. There is a oval circumscribed hypoechoic in the right breast at 10 o'clock 5 cm from the nipple, measuring 1.3 x 1.0 x 0.6 cm. This may correlate to the mass with coarse calcifications in the upper-outer right breast visualized lies mammographically. Also, there is a hypoechoic mass in the retroareolar 3 o'clock right breast measuring 1.0 x 0.6 x 0.6 cm. There are multiple dilated ducts in the retroareolar right breast without evidence of intraductal mass or debris. US/Breast Limited Unilateral IMPRESSION: 1. The patient's area of palpable concern in the right breast correlates to a benign cyst. 2. Probably benign masses in the right breast at 10 o'clock 5 cm from the nipple and 3 o'clock retroareolar. Recommend short interval diagnostic ultrasound of the right breast with in six-months for further evaluation. 3. Dilated ducts in the retroareolar right breast are benign. OVERALL FINAL ASSESSMENT: BIRADS 3 PROBABLY BENIGN. RECOMMENDATION: Short interval follow-up. A letter with findings and recommendations will be mailed to the patient. Reading Location: [facility] CC: JERRY Berg; No Primary Care Physician Director Sales And Marketing: Signed Normal [facility] Breast imaging reportOrdered By: Jordyn Harris on 11-28-2024 Study report [facility] Imaging Services [address] [place] [address] DIAG MAMM W/CAD, BILAT MR#: [id number] Acct: [id number] Name: YUDITH PERALES Rep #: [id number] : 1980 F 44 From: Margaret Harris MD PCP: Care Physician,No Primary Status: REG CLI Study:DIAG MAMM W/CAD, BILAT Date of Exam: 11/28/24 Exam# [id number] Ordering Dr: Roula Berg WIDE AREA NETWORK ENGINEER WIDE AREA NETWORK ENGINEER-C EXAM: DIAG MAMM W/CAD, BILAT; BREAST LIMITED UNILATERAL; BILAT BRST DEMIAN STAND ALONE 11/28/2024 CLINICAL HISTORY: 44-year-old female presents with palpable concern in the right breast. No family history of breast cancer. TECHNIQUE: Bilateral Diagnostic digital breast tomosynthesis with 2D and 3D images. Computer aided detection. Also, targeted right breast ultrasound was performed. COMPARISON: Baseline examination, no priors. FINDINGS: MAMMOGRAM: TISSUE DENSITY: The breast tissue is heterogenously dense, which may obscure small masses. Right breast: There is a triangle skin marker indicating the area of palpable concern in the right breast. Underlying the skin marker is an circumscribed round mass. Also, there are multiple circumscribed masses scattered throughout the right breast. There are a mass with associated coarse calcifications in the upper-outer right breast at posterior depth. During the examination, the patient had yellowish right nipple discharge. Left breast: There are multiple circumscribed masses scattered throughout the left breast. Otherwise, there are no suspicious findings in the left breast. ULTRASOUND: Ultrasound performed of the area of patient's palpable concern corresponds to a cyst at 11 o'clock 2 cm from the nipple, measuring 3.3 x 1.8 x 1.7 cm. There is a oval circumscribed hypoechoic in the right breast at 10 o'clock 5 cm from the nipple, measuring 1.3 x 1.0 x 0.6 cm. This may correlate to the mass with coarse calcifications in the upper-outer right breast visualized lies mammographically. Also, there is a hypoechoic mass in the retroareolar 3 o'clock right breast measuring 1.0 x 0.6 x 0.6 cm. There are multiple dilated ducts in the retroareolar right breast without evidence of intraductal mass or debris. BI/DIAG MAMM W/CAD, BILAT IMPRESSION: 1. The patient's area of palpable concern in the right breast correlates to a benign cyst. 2. Probably benign masses in the right breast at 10 o'clock 5 cm from the nipple and 3 o'clock retroareolar. Recommend short interval diagnostic ultrasound of the right breast with in six-months for further evaluation. 3. Dilated ducts in the retroareolar right breast are benign. OVERALL FINAL ASSESSMENT: BIRADS 3 PROBABLY BENIGN. RECOMMENDATION: Short interval follow-up. A letter with findings and recommendations will be mailed to the patient. Reading Location: [facility] CC: W[employer]A NETWORK ENGINEER-C Roula Berg; No Primary Care Physician ~ Director Sales And Marketing: Signed [facility] Study report [facility] Imaging Services [address] [place], [place] [id number] Bilat Brst Demian Stand Alone MR#: [id number] Acct: [id number] Name: YUDITH PERALES Rep #: [id number] : 1980 F 44 From: Margaret Harris MD PCP: Care Physician,No Primary Status: REG CLI Study:Bilat Brst Demian Stand Alone Date of Exa m: 11/28/24 Exam# [id number] Ordering Dr: Roula Berg NP [employer] NETWORK ENGINEER-C EXAM: DIAG MAMM W/CAD, BILAT; BREAST LIMITED UNILATERAL; BILAT BRST DEMIAN STAND ALONE 11/28/2024 CLINICAL HISTORY: 44-year-old female presents with palpable concern in the right breast. No family history of breast cancer. TECHNIQUE: Bilateral Diagnostic digital breast tomosynthesis with 2D and 3D images. Computer aided detection. Also, targeted right breast ultrasound was performed. COMPARISON: Baseline examination, no priors. FINDINGS: MAMMOGRAM: TISSUE DENSITY: The breast tissue is heterogenously dense, which may obscure small masses. Right breast: There is a triangle skin marker indicating the area of palpable concern in the right breast. Underlying the skin marker is an circumscribed round mass. Also, there are multiple circumscribed masses scattered throughout the right breast. There are a mass with associated coarse calcifications in the upper-outer right breast at posterior depth. During the examination, the patient had yellowish right nipple discharge. Left breast: There are multiple circumscribed masses scattered throughout the left breast. Otherwise, there are no suspicious findings in the left breast. ULTRASOUND: Ultrasound performed of the area of patient's palpable concern corresponds to a cyst at 11 o'clock 2 cm from the nipple, measuring 3.3 x 1.8 x 1.7 cm. There is a oval circumscribed hypoechoic in the right breast at 10 o'clock 5 cm from the nipple, measuring 1.3 x 1.0 x 0.6 cm. This may correlate to the mass with coarse calcifications in the upper-outer right breast visualized lies mammographically. Also, there is a hypoechoic mass in the retroareolar 3 o'clock right breast measuring 1.0 x 0.6 x 0.6 cm. There are multiple dilated ducts in the retroareolar right breast without evidence of intraductal mass or debris. BI/Bilat Brst Demian Stand Alone IMPRESSION: 1. The patient's area of palpable concern in the right breast correlates to a benign cyst. 2. Probably benign masses in the right breast at 10 o'clock 5 cm from the nipple and 3 o'clock retroareolar. Recommend short interval diagnostic ultrasound of the right breast with in six-months for further evaluation. 3. Dilated ducts in the retroareolar right breast are benign. OVERALL FINAL ASSESSMENT: BIRADS 3 PROBABLY BENIGN. RECOMMENDATION: Short interval follow-up. A letter with findings and recommendations will be mailed to the patient. Reading Location: [facility] CC: [employer] NETWORK ENGINEER-Harpal Berg; No Primary Care Physician ~ Director Sales And Marketing: Signed [facility] DIAG MAMM W/CAD, BILATon DIAG MAMM W/CAD, BILAT [facility] Imaging Services [address] [place] [address] DIAG MAMM W/CAD, BILAT MR#: [id number] Acct: [id number] Name: YUDITH PERALES Rep #: [id number] : 1980 F 44 From: Jordyn Harris MD PCP: Care Physician,No Primary Status: REG CLI Study: DIAG MAMM W/CAD, BILAT Date of Exam: 11/28/24 Exam# [id number] Ordering Dr: Roula Berg NP [employer] NETWORK ENGINEER -C EXAM: DIAG MAMM W/CAD, BILAT; BREAST LIMITED UNILATERAL; BILAT BRST DEMIAN STAND ALONE 11/28/2024 CLINICAL HISTORY: 44-year-old female presents with palpable concern in the right breast. No family history of breast cancer. TECHNIQUE: Bilateral Diagnostic digital breast tomosynthesis with 2D and 3D images. Computer aided detection. Also, targeted right breast ultrasound was performed. COMPARISON: Baseline examination, no priors. FINDINGS: MAMMOGRAM: TISSUE DENSITY: The breast tissue is heterogenously dense, which may obscure small masses. Right breast: There is a triangle skin marker indicating the area of palpable concern in the right breast. Underlying the skin marker is an circumscribed round mass. Also, there are multiple circumscribed masses scattered throughout the right breast. There are a mass with associated coarse calcifications in the upper-outer right breast at posterior depth. During the examination, the patient had yellowish right nipple discharge. Left breast: There are multiple circumscribed masses scattered throughout the left breast. Otherwise, there are no suspicious findings in the left breast. ULTRASOUND: Ultrasound performed of the area of patient's palpable concern corresponds to a cyst at 11 o'clock 2 cm from the nipple, measuring 3.3 x 1.8 x 1.7 cm. There is a oval circumscribed hypoechoic in the right breast at 10 o'clock 5 cm from the nipple, measuring 1.3 x 1.0 x 0.6 cm. This may correlate to the mass with coarse calcifications in the upper-outer right breast visualized lies mammographically. Also, there is a hypoechoic mass in the retroareolar 3 o'clock right breast measuring 1.0 x 0.6 x 0.6 cm. There are multiple dilated ducts in the retroareolar right breast without evidence of intraductal mass or debris. BI/DIAG MAMM W/CAD, BILAT IMPRESSION: 1. The patient's area of palpable concern in the right breast correlates to a benign cyst. 2. Probably benign masses in the right breast at 10 o'clock 5 cm from the nipple and 3 o'clock retroareolar. Recommend short interval diagnostic ultrasound of the right breast with in six-months for further evaluation. 3. Dilated ducts in the retroareolar right breast are benign. OVERALL FINAL ASSESSMENT: BIRADS 3 PROBABLY BENIGN. RECOMMENDATION: Short interval follow-up. A letter with findings and recommendations will be mailed to the patient. Reading Location: [id number] CC: JERRY Berg; No Primary Care Physician Director Sales And Marketing: Signed Normal [facility] Pot[facility] Office Visit Reporton 11-11-2024 [facility] Office Visit Report [facility]'s [address], [address] [place] [address] OFFICE VISIT Date of Service: 11/11/24 MR#: [id number] Acct: [id number] Name: YUDITH PERALES Rep #: [id number] : 1980 Provider: JERRY castaneda Age/Sex: 44/F [place] [facility] Status: Signed Intake Vital Signs 07/07/24 08:34 11/11/24 08:45 11/11/24 08:52 Height 5 ft 4 in 5 ft 4 in 5 ft 4 in Weight: 182 lb 6 oz 177 lb 6 oz BMI 31.3 30.4 BP 150/81 H 136/84 H Blood Pressure Location Rt brachial Position Sitting Pulse 115 H Pulse Source Monitor Pulse Oximetry (%) 98 Oxygen Delivery Method room air Intake Visit Reasons: R breast lump (movable, pea sized) Chief Complaint: Right breast lump Car Loader Required: No Is patient in pain?: No Allergies No Known Allergies Allergy (Verified 11/11/24 08:43) Medications ???Medication ???Instructions ???Recorded ???Confirmed ???Type methimazole 5 mg tablet 5 mg PO .Sun-Sunday #90 tabs 11/11/24 Rx multivitamin 1 tab PO QAM 11/11/24 11/11/24 His tory Is last menstrual period known: Yes Last Menstrual Period: 11/04/24 Post menopausal: No Patient : No : No PFSH Medical History Paresthesias Thyrotoxicosis Abscess of chest Surgical History History of incision and drainage Family History Father Thyroid disorder Brother Thyroid disorder Social History (Updated 11/11/24 @ 08:51 by Carla Cedeño) household members: spouse current occupational status: employed current occupation: [employer] Smoking Status: Never smoker second hand exposure: No alcohol intake: current alcohol intake frequency: holidays/special occasions only substance use type: does not use caffeine: Yes what type of physical activity do you participate in: walking, running, aerobics and weight training frequency: 3-4 times per week seatbelt use: always do you feel safe at home: Yes additional social history: - [employer] @ [employer] [facility] R breast lump (movable, pea sized) Details: YUDITH PERALES is a 44 year old who presents for new patient lump in right breast X 2 weeks. Last exam 2020, residential with Dr Bryan. Female Reproductive History Last Menstrual Period: 11/04/24 Cycle Length: 21-35 History 2 Elective abortions Hx Para 2 Spontaneous abortions Hx # Term Pregnancies Ectopic pregnancies Hx # Pregnancies Multiple births # of living children 2 Past Pregnancies Del. Date Name GA/Weeks Outcome Route Bth Weight Gen Labor Lgth Anesthesia Del Locatn Provider FOB Unknown [place] Unknown Kate ROS Const Constitutional: Reports system reviewed and no additional complaints, except as documented : Reports system reviewed and no additional complaints, except as documented Skin Skin/Breast: Reports as per HPI Psych Psych: Reports system reviewed and no additional complaints, except as documented Exam Const General: cooperative and no acute distress Orientation: oriented x3 HENMT Head: normal to inspection Neck Neck: normal visual inspection Chest Breast inspection: normal inspection of the breasts and normal inspection of the axillae Breast palpation: normal palpation of the breasts (left), normal palpation of the axillae and abnormal palpation of the breast (2cm elongated irregular, mobile mass, firm) right upper outer Resp Effort Inspection: normal respiratory effort Coding Level of Care Code Off vis,new,level 3 Diagnoses Mass of upper outer quadrant of right breast N63.11 Breast mass location: upper outer quadrant Assessment and Plan Assessment and Plan (1) Breast mass, right: Status: Acute Qualifiers: Breast mass location: upper outer quadrant Qualified Code(s): N63.11 - Unspecified lump in the right breast, upper outer quadrant Orders: Orders Breast Limited Unilateral Today N63.10 - Unspecified lump in the right breast, unspecified quadrant DIAG MAMM W/CAD, BILAT Today N63.10 - Unspecified lump in the right breast, unspecified quadrant Plan Imaging of breast Scheduled annual 11/11/24927 Date Roula Berg W[employer] NETWORK ENGINEER W[employer] NETWORK ENGINEER-C Cosigner Signature: Date (if applicable) CC: Normal [facility] Endocrinology Visit Reporton 07-07-2024 Endocrinology Visit Report [facility] [address] [place] [address] OFFICE VISIT Date of Service: 07/07/24 MR#: [id number] Acct: [id number] Name: YUDITH PERALES Rep #: [id number] : 1980 Provider: Jessa Rothman Age/Sex: 44/F Location: [facility] [place] Status: Signed Intake Vital Signs 01/07/24 08:55 07/07/24 08:34 Height 5 ft 4 in 5 ft 4 in Weight: 168 lb 182 lb 6 oz BMI 28.8 31.3 BP 143/94 H 150/81 H Blood Pressure Location Lt brachial Rt brachial Position Sitting Sitting Respiration 16 Pulse 107 H 115 H Pulse Source Monitor Monitor Temp 97.3 F L Temp Source Temporal Pulse Oximetry (%) 98 98 Oxygen Delivery Method room air room air Intake Visit Reasons: 6 M FU Chief Complaint: thyrotoxicosis Is patient in pain?: No Allergies No Known Allergies Allergy (Verified 07/07/24 08:37) Medications ???Medication ???Instructions ???Recorded ???Confirmed ???Type methimazole 5 mg tablet 5 mg PO .Sun-Sunday #90 tabs 01/07/24 07/07/24 Rx PFSH Medical History Paresthesias Thyrotoxicosis Abscess of chest Surgical History History of incision and drainage Family History Father Thyroid disorder Brother Thyroid disorder Social History Smoking Status: Never smoker second hand exposure: No alcohol intake: current alcohol intake frequency: holidays/special occasions only substance use type: does not use caffeine: Yes what type of physical activity do you participate in: walking, running, aerobics and weight training frequency: 3-4 times per week HPI HPI Chief Complaint: thyrotoxicosis Details: YUDITH PERALES, is a 44 F who presents to the office today for follow up. She has been on methimazole for about 18 months. She states she is feeling well. She states pulse is high due nervousness about the appointment. Sleeping well, menses normal. ROS Const Constitutional: No fatigue, weight change or change in appetite Eyes Eyes: No change in vision ENT ENT: No dizziness/vertigo or difficulty swallowing Cardio Cardiology: No chest pain at rest, chest pain with exertion, shortness of breath or palpitations Musc Musculoskeletal: No abnormal gait, joint pain, numbness or tingling Neuro Neurology: No abnormal gait, memory loss, numbness or tingling Psych Psychiatric: No change in appetite, No memory loss and No Thoughts of harming yourself/Others Resp Respiratory: No cough, chest congestion or shortness of breath Gastro GI: No abdominal pain, constipation, diarrhea or difficulty swallowing Genitourinary-Female: No burning urination Skin Skin: No itchy eyes or wounds Endo Endocrine: No fatigue or weight change Aller/Imm Allergy/Immunologic: No itchy eyes Exam Const General: cooperative, healthy appearing, comfortable, no acute distress, well developed and not cushingoid Nutritional Appearance: well nourished Orientation: alert, awake and oriented x3 HENMT Head: normal to inspection Ears: hearing grossly normal bilaterally Nose: external nose normal Mouth: oral mucosae normal Eyes General: appearance normal, both eyes and all related structures Alignment and Position: alignment normal Periorbital: periorbital findings normal Eyelids: eyelids normal Conjunctivae: conjunctivae normal Neck Neck: normal visual inspection Neck mass: No Thyroid: diffusely enlarged Carotids: no bruits Lymphatic: no lymphadenopathy noted Chest Chest palpation inspection: normal inspection of the chest Resp Effort Inspection: normal respiratory effort, able to speak in complete sentences, symmetric chest movement, no audible wheezes and no cough Auscultation: Bilateral: Clear to Auscultation Cardio Rate: tachycardic Rhythm: regular rhythm Pulses: posterior tibial pulses present Skin General: no rashes or lesions noted Neuro General: patient alert, patient awake and patient oriented x3 Cranial Nerves: CN's II-XI intact bilaterally Cognition: normal cognition Speech: speech normal Gait: normal gait Motor: muscle tone normal throughout Extrem General: no edema Psych Appearance: grossly normal Mental Status: mental status grossly normal Mood: congruent mood Affect: normal affect Speech and Movement: speech and movement normal Attitude: cooperative Thought Process: normal Thought Content: normal Judgment: judgment good Assessment and Plan Assessment and Plan (1) Thyrotoxicosis: Status: Chronic Qualifiers: Thyrotoxic crisis or storm presence: without thyrotoxic crisis or storm Thyrotoxicosis type: with (more content not included)... Normal [facility] Free T3on 07-07-2024 Free T3 [Mass/Vol] 2.8 pg/mL Normal 2.18-3.98 [facility] Comment on above: Performed By: #### L 506.0400, L501.1457, L501.76126 #### [facility] [address] [place], [place], [id number] T4 Free Directon 07-07-2024 T4 FREE DIRECT 1.08 ng/dL Normal 0.76-1.46 [facility] Comment on above: Performed By: #### L 506.0400, L501.9520, L501.48190 ####[facility] [id number] [place], [place], [id number] Thyroid Stim Hormone (TSH)on 07-07-2024 TSH 1.340 uIU/mL Normal 0.358-3.740 [facility] Comment on above: Performed By: #### L 506.0400, L501.7334, L501.09107 ####[facility] [id number] [place], [address] Endocrinology Visit Reporton 01-07-2024 Endocrinology Visit Report [facility] [address] [place] [address] OFFICE VISIT Date of Service: 01/07/24 MR#: [id number] Acct: [id number] Name: YUDITH PERALES Rep #: [id number] : 1980 Provider: Jessa Rothman Age/Sex: 43/F Location: [facility] [place] Status: Signed Intake Vital Signs 08/13/23 08:36 01/07/24 08:55 Height 5 ft 4 in 5 ft 4 in Weight: 159 lb 168 lb BMI 27.3 28.8 BP 132/81 H 143/94 H Blood Pressure Location Lt brachial Lt brachial Position Sitting Sitting Respiration 16 16 Pulse 130 H 107 H Pulse Source Monitor Monitor Temp 98.6 F 97.3 F L Temp Source Temporal Temporal Pulse Oximetry (%) 98 98 Oxygen Delivery Method room air room air Intake Visit Reasons: 6 M FU Chief Complaint: thyrotoxicosis Car Loader Required: No Accompanied by: Self Is patient in pain?: No Allergies No Known Allergies Allergy (Verified 01/07/24 08:55) Medications ???Medication ???Instructions ???Recorded ???Confirmed ???Type methimazole 5 mg tablet 5 mg PO .Sun-Sunday #90 tabs 08/13/23 01/07/24 Rx PFSH Medical History Paresthesias Thyrotoxicosis Abscess of chest Surgical History History of incision and drainage Family History Father Thyroid disorder Brother Thyroid disorder Social History Smoking Status: Never smoker second hand exposure: No alcohol intake: current alcohol intake frequency: holidays/special occasions only substance use type: does not use caffeine: Yes what type of physical activity do you participate in: walking, running, aerobics and weight training frequency: 3-4 times per week HPI HPI Chief Complaint: thyrotoxicosis Details: YUDITH PERALES, is a 43 F who presents to the office today for follow up. She presented one year ago with palpitations. She has been on methimazole since that time. Last labs were done 6 months ago. She has increased cardiac awareness. Hair growth is improved. She has gained weight. Exam Const General: cooperative, healthy appearing, comfortable, no acute distress, well developed and not cushingoid Nutritional Appearance: well nourished Orientation: alert, awake and oriented x3 HENMT Head: normal to inspection Ears: hearing grossly normal bilaterally Nose: external nose normal Mouth: oral mucosae normal Eyes General: appearance normal, both eyes and all related structures Alignment and Position: alignment normal Periorbital: periorbital findings normal Eyelids: eyelids normal Conjunctivae: conjunctivae normal Neck Neck: normal visual inspection Neck mass: No Thyroid: thyroid normal Carotids: no bruits Lymphatic: no lymphadenopathy noted Chest Chest palpation inspection: normal inspection of the chest Resp Effort Inspection: normal respiratory effort, able to speak in complete sentences, symmetric chest movement, no audible wheezes and no cough Auscultation: Bilateral: Clear to Auscultation Cardio Rate: regular rate Rhythm: regular rhythm Pulses: posterior tibial pulses present GI Inspection: normal to inspection Auscultation: normal bowel sounds Palpation: soft and no hepatosplenomegaly Skin General: no rashes or lesions noted Neuro General: patient alert, patient awake and patient oriented x3 Cranial Nerves: CN's II-XI intact bilaterally Cognition: normal cognition Speech: speech normal Gait: normal gait Motor: muscle tone normal throughout Extrem General: no edema Psych Appearance: grossly normal Mental Status: mental status grossly normal Mood: congruent mood Affect: normal affect Speech and Movement: speech and movement normal Attitude: cooperative Thought Process: normal Thought Content: normal Judgment: judgment good Coding Level of Care Code Off vis,est,level 3 Diagnoses 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 I suggested reading [employer] by Angeles Johnson for information regarding food choices with low glycemic index and for weight loss. I have spent [25 minutes today reviewing labs, records and history. Time includes coordinating care, int (more content not included)... Normal [facility] Free T3on 01-07-2024 Free T3 [Mass/Vol] 2.9 pg/mL Normal 2.18-3.98 [facility] Comment on above: Performed By: #### L 501.9520, L506.0400, L501.65243 #### [facility] [address] [place], [address] T4 Free Directon 01-07-2024 T4 FREE DIRECT 0.98 ng/dL Normal 0.76-1.46 [facility] Comment on above: Performed By: #### L 501.9520, L506.0400, L501.79878 #### [facility] [address] [place], [address] Thyroid Stim Hormone (TSH)on 01-07-2024 TSH 1.55 uIU/mL Normal 0.358-3.74 [facility] Comment on above: Performed By: #### L 501.9520, L506.0400, L501.52400 #### [facility] [address] [place], [address] No Panel InformationOrdered By: Rene Gooden on 08-13-2023 Free Triiodothyronine (T3) pg/dL 2.2 pg/mL 2.18-3.98 [facility] Serum or plasma thyroid stim ulating hormone (TSH) measurement (units/volume)Ordered By: Rene Gooden on 08-13-2023 TSH Qn 2.61 uIU/mL 0.358-3.74 [facility] Thin prep Papanicolaou smear with manual screeningOrdered By: Rene Gooden on 08-13-2023 Thin prep Papanicolaou smear with manual screening 0.86 ng/dL 0.76-1.46 [facility] - Chemistry and C hemistry - challengeOrdered By: Rene Gooden on 06-18-2023 Free T4 [Mass/Vol] 0.94 ng/dL 0.76-1.46 [facility] No Panel InformationOrdered By: Rene Gooden on 06-18-2023 Free Triiodothyronine (T3) pg/dL 2.7 pg/mL 2.18-3.98 [facility] Thyroid Stimulating Hormone (TSH) 0.73 uIU/mL 0.358-3.74 [facility] - Chemistry and C hemistry - challengeOrdered By: Rene Gooden on 04-23-2023 Cobalamin (Vitamin B12) [Mass/Vol] 688 pg/mL 211-911 [facility] Free T4 [Mass/Vol] 0.79 ng/dL 0.76-1.46 [facility] No Panel InformationOrdered By: Rene Gooden on 04-23-2023 Free Triiodothyronine (T3) pg/dL 2.3 pg/mL 2.18-3.98 [facility] Thyroid Stimulating Hormone (TSH) 1.48 uIU/mL 0.358-3.74 [facility] Laboratory - Chemistry and C hemistry - challengeOrdered By: Rene Gooden on 03-30-2023 Free T4 [Mass/Vol] 0.68 ng/dL 0.76-1.46 [facility] No Panel InformationOrdered By: Rene Gooden on 03-30-2023 Free Triiodothyronine (T3) pg/dL 2.1 pg/mL 2.18-3.98 [facility] Thyroid Stimulating Hormone (TSH) 0.54 uIU/mL 0.358-3.74 [facility] CNOVon 02-20-2023 CNOV Office Visit (S ) YUDITH PERALES ([id number]) 1980 F Date Time Provider Department 02/20/23 8:30 AM ARNOL LEONARD During your visit today, we recorded the following information about you: Temperature Pulse Blood pressure Weight 97.7 degrees 125/minute 128/74 69.4 kg Height 1.626 m Shellie Aparicio LPN 02/20/2023 8:33 AM Signed REVIEW OF SYSTEMS: General: The patient denies fatigue, denies weight loss, denies weight gain, denies feeling hot, and denies feelings of cold. Eyes: The patient denies glaucoma, denies eye injury/surgery, does not wear glasses or contacts. Ear/Nose/Throat: The patient denies allergies, denies hayfever, denies ear infections, and denies bloody noses. Cardiovascular: The patient denies chest pain, denies heart disease, denies high blood pressure,denies cardiac stent, denies prior heart attack, denies irregular heart beat, denies high cholesterol, denies poor circulation, denies heart failure, other cardiac issues, denies claudication, denies cold feet, denies peripheral arterial stent. Respiratory: The patient denies tuberculosis, denies pneumonia, denies frequent cough, denies pulmonary embolism, denies shortness of breath, and denies coughing up blood. Gastrointestinal: The patient denies difficulty swallowing, denies acid reflux, denies ulcers, denies vomiting, denies jaundice/hepatitis, denies gallbladder problems, denies black or tarry stools, denies hemorrhoids, denies bleeding from rectum, denies diverticulitis, denies constipation, denies diarrhea, denies loss of stool control, and denies hernias. Kidney/Bladder: The patient denies kidney stones, denies urine infections, and denies bloody urine. Skin: The patient denies a history of skin cancer, denies bleeding/changing moles, and denies a history of skin rash. Neurologic: The patient denies a history of epilepsy/convulsions, denies headaches, denies head/spinal injuries, and denies stroke/TIA. Psychiatric: The patient denies psychiatric medications, denies depression, and denies voices, denies substance abuse. Endocrine: The patient NOTES thyroid disorders, denies diabetes, and denies hormonal problems. Hematologic: The patient denies a history of bruising, denies bleeding, and denies anemia, denies blood clots. Infections: The patient denies a history of measles and mumps, denies rheumatic fever, and denies sexually transmitted diseases. Musculoskeletal: The patient denies back pain/injury, denies back problems, denies sciatica, denies knee/foot trouble, denies arthritis, or denies gout. When was patient's last Mammogram screening? None Last Colonoscopy: no prior EUGENIE Rivero Daniel P, MD 02/20/2023 8:45 AM Signed Subjective: Patient is a 42-year-old female who presents with a cyst in between her bra line. She was started on Bactrim and the area has spontaneously opened and is far less red and painful that it once was. I saw her back in 2017 and performed an incision and drainage of an infected cyst at that time. I have not seen her back since then. Objective:Blood pressure 128/74, pulse (!) 125, temperature 36.5 ?C (97.7 ?F), height 162.6 cm (5' 4), weight 69.4 kg (153 lb), SpO2 99 %. Middle of the breast shows a scar with an open area. Really no cellulitis to speak of but clearly it looks like there has been a abscess that has spontaneously drained on its own. Assessment:Cellulitis and abscess of trunk (primary encounter diagnosis) Plan: I am going to switch her to Levaquin for 10 days I want to see her back in about 2 weeks to see if we are going to be able to do a reexcision of a recurrent sebaceous cyst in this area. I am afraid if I try to do anything at this point we will have to leave it open and let it heal in by secondary intention. Allergies As of Date: 02/20/2023 (No Known Allergies) Date Reviewed: 02/20/2023 Reviewed by: Shellie Aparicio LPN - Fully Assessed Reason for Visit: Consult [173] Cmt: Cyst around bra line Primary Visit Diagnosis:Cellulitis and abscess of trunk [L03.319, L02.219] Order(s):levoFLOXacin (LEVAQUIN) 500 mg tabletTake 1 tablet by mouth once daily.Disp: 10 tabletRfl: 0 Prescriptions as of 02/20/2023 - methIMAzole (TAPAZOLE) 10 mg tablet Take 10 mg by mouth three times daily. - levoFLOXacin (LEVAQUIN) 500 mg tablet Take 1 tablet by mouth once daily. Problem List As Of Date: 02/20/2023 (None) Visit Notes: >> Shellie Aparicio LPN Tue Feb 20, 2023 8:32 AM Status: Signed REVIEW OF SYSTEMS: General: The patient denies fatigue, denies weight loss, denies weight gain, denies feeling hot, and denies feelings of cold. Eyes: The patient denies glaucoma, denies eye injury/surgery, does not wear glasses or contacts. Ear/Nose/Throat: The patient denies allergies, denies hayfever, denies ear infections, and denies bloody n (more content not included)... Normal [facility] Laboratory - Chemistry and C hemistry - challengeOrdered By: Rene Gooden on 02-12-2023 Free T4 [Mass/Vol] 0.85 ng/dL 0.76-1.46 [facility] No Panel InformationOrdered By: Rene Gooden on 02-12-2023 Free Triiodothyronine (T3) pg/dL 2.9 pg/mL 2.18-3.98 [facility] Thyroid Stimulating Hormone (TSH) < 0.01 uIU/mL 0.358-3.74 [facility] Laboratory - Chemistry and C hemistry - challengeOrdered By: Rene Gooden on 01-17-2023 Free T4 [Mass/Vol] 1.11 ng/dL 0.76-1.46 [facility] No Panel InformationOrdered By: Rene Gooden on 01-17-2023 Free Triiodothyronine (T3) pg/dL 4.0 pg/mL 2.18-3.98 [facility] Thyroid Stimulating Hormone (TSH) < 0.01 uIU/mL 0.358-3.74 [facility] Absolute lymphocyte countOrd ered By: Dr. Candelario on 12-19-2022 Lymphocytes Auto (Unsp spec) [#/Vol] 1.09 10*3/uL 0.83-4.51 [facility] Basophil percentageOrdered B y: Dr. Candelario on 12-19-2022 Basophils/100 WBC (Bld) 0.4 % 0-1 [facility] Chloride [Moles/Vol] 111 mmol/L 98-107 [facility] Eosinophils/100 WBC (Bld) 2.0 % 0-5 [facility] Glucose [Mass/Vol] 112 mg/dL 74-106 [facility] Comment on above: Fasting Glucose resu lt from 100 to 125 mg/dL suggests IMPAIRED HOMEOSTASIS per A.D.A. criteria. Neutrophils (Bld) [#/Vol] 3.3 10*3/uL 2.0-7.7 [facility] Neutrophils/100 WBC (Bld) 65.8 % 47-70 [facility] Potassium [Moles/Vol] 3.2 mmol/L 3.5-5.1 [facility] Sodium [Moles/Vol] 144 mmol/L 136-145 [facility] WBC (Bld) [#/Vol] 5.0 10*3/uL 4.4-11.0 [facility] Beta hCG serum qualOrdered B y: Dr. Candelario on 12-19-2022 Beta HCG ( test) Ql Negative [facility] Blood erythrocytes count (nu mber/volume)Ordered By: Dr. Candelario on 12-19-2022 RBC (Bld) [#/Vol] 5.16 10*6/uL 4.2-5.4 [facility] Blood hemoglobin measurement (mass/volume)Ordered By: Dr. Candelario on 12-19-2022 Hemoglobin (Bld) [Mass/Vol] 14.7 g/dL 12.0-15.0 [facility] Blood lymphocytes/100 leukoc ytesOrdered By: Dr. Candelario on 12-19-2022 Lymphocytes/100 WBC (Bld) 21.9 % 19-41 [facility] Blood monocytes/100 leukocyt esOrdered By: Dr. Candelario on 12-19-2022 Monocytes/100 WBC (Bld) 9.7 % 0-10 [facility] Blood platelet mean volumeOr dered By: Dr. Candelario on 12-19-2022 Platelet mean volume (Bld) [Entitic vol] 8.5 fL 6.2-12.0 [facility] Determination of erythrocyte mean corpuscular volume (MCV)Ordered By: Dr. Candelario on 12-19-2022 MCV (RBC) [Entitic vol] 84.1 fL 81-99 [facility] Hematocrit Auto (Bld) [Volum e fraction]Ordered By: Dr. Candelario on 12-19-2022 Hematocrit (Bld) [Volume fraction] 43.4 % 37-47 [facility] Laboratory - Chemistry and C hemistry - challengeOrdered By: Dr. Candelario on 12-19-2022 CO2 [Moles/Vol] 23.0 mmol/L 21.0-32.0 [facility] Urea nitrogen/Creatinine [Mass ratio] 13.7 mg/mg 10-20 [facility] Laboratory - Hematology and Cell countsOrdered By: Dr. Candelario on 12-19-2022 Erythrocyte distribution width (RBC) [Entitic vol] 39.2 fL 35.1-43.9 [facility] Erythrocyte distribution width (RBC) [Ratio] 12.8 % 11.6-14.6 [facility] Immature granulocytes/100 WBC (Bld) 0.200 % 0.0-0.9 [facility] Comment on above: IG% - Immature Granu locytes (promyelocytes, myelocytes and metamyelocytes) > 1% indicates that a LEFT SHIFT is Present. MCH (RBC) [Entitic mass] 28.5 pg 27.0-32.0 [facility] Nucleated RBC/100 WBC (Bld) [Ratio] 0 % 0-5 [facility] MCHC Auto (RBC) [Mass/Vol]Or dered By: Dr. Candelario on 12-19-2022 MCHC (RBC) [Mass/Vol] 33.9 g/dL 32-36 [facility] No Panel InformationOrdered By: Dr. Candelario on 12-19-2022 Thyroid Stimulating Hormone (TSH) < 0.01 uIU/mL 0.358-3.74 [facility] D-Dimer Quantitative (PE/DVT) 0.36 FEU/ug/m 0.27-0.49 [facility] Comment on above: NORMAL D-Dimer level (<0.50) indicates no DVT or PE. Estimated Creatinine Clearance Calc 111.34 ml/min [facility] Estimated GFR (MDRD) Amer 147 mL/min >60 [facility] Comment on above: GFR Calc Estimated GFR (MDRD) Non-Af Amer 121 mL/min >60 [facility] Comment on above: Non- GFR Calc Troponin I High Sensitivity 6 pg/mL 3.0-54.0 [facility] Comment on above: Please Note: New Hoa t Units and Gender Specific Reference Ranges. For more information see Policy Stat Procedure [place] High Sensitivity Troponin (TNIH) and attachments. Platelets bldOrdered By: Dr. Candelario on 12-19-2022 Platelets (Bld) [#/Vol] 243 10*3/uL 150-450 [facility] Serum or plasma calcium edy urement (mass/volume)Ordered By: Dr. Candelario on 12-19-2022 Calcium [Mass/Vol] 8.8 mg/dL 8.5-10.1 [facility] Serum or plasma creatinine m easurement (mass/volume)Ordered By: Dr. Candelario on 12-19-2022 Creatinine [Mass/Vol] 0.58 mg/dL 0.55-1.02 [facility] Comment on above: The validity of the calculated GFR & GFRAA in patients over 70 years has not been determined. Clinical correlation is essential. Serum or plasma urea nitroge n measurement (mass/volume)Ordered By: Dr. Candelario on 12-19-2022 Urea nitrogen [Mass/Vol] 8 mg/dL 7-18 [facility] Thin prep Papanicolaou smear with manual screeningOrdered By: Dr. Candelario on 12-19-2022 Thin prep Papanicolaou smear with manual screening 10 -15 [facility] Vital Signs Date Time Vital Sign Value Performing Clinician Chantal mercedes 01-05-2025 08:23-0400 Body height 162.56 cm Kevin [facility] Work Phone: [facility] 01-05-2025 08:23-0400 Body mass index (BMI) [Ratio] 30.7 kg/m2 [facility] Work Phone: [facility] 01-05-2025 08:23-0400 Body weight 81.19 kg Kevin [facility] Work Phone: [facility] 01-05-2025 08:23-0400 Diastolic blood pressure 96 mm[Hg] Kevin Haydenpkins [employer] Work Phone: [facility] 01-05-2025 08:23-0400 Heart rate 102 /min Kevin Kingston [employer] Work Phone: [facility] 01-05-2025 08:23-0400 SaO2% (BldA) [Mass fraction] 98 % Kevin Haydenpkins [employer] Work Phone: [facility] 01-05-2025 08:23-0400 Systolic blood pressure 147 mm[Hg] Kevin Haydenpkins [employer] Work Phone: [facility] 12-02-2024 14:15-0400 Diastolic blood pressure 97 mm[Hg] Kevin Haydenpkins [employer] Work Phone: [facility] 12-02-2024 14:15-0400 Systolic blood pressure 137 mm[Hg] Kevin Haydenpkins [employer] Work Phone: [facility] 12-02-2024 13:48-0400 Body height 162.56 cm Kevin Haydenpkins [employer] Work Phone: [facility] 12-02-2024 13:48-0400 Body mass index (BMI) [Ratio] 30 kg/m2 Kevin Haydenpkins [employer] Work Phone: [facility] 12-02-2024 13:48-0400 Body weight 79.43 kg Kevin Haydenpkins [employer] Work Phone: [facility] 11-11-2024 08:45-0400 Body mass index (BMI) [Ratio] 30.4 kg/m2 Kevin Haydenpkins [employer] Work Phone: [facility] 11-11-2024 08:45-0400 Body weight 80.45 kg Kevin Vashti [employer] Work Phone: [facility] 11-11-2024 08:45-0400 Diastolic blood pressure 84 mm[Hg] Kevin Kingston [employer] Work Phone: [facility] 11-11-2024 08:45-0400 Systolic blood pressure 136 mm[Hg] Kevin Kingston [employer] Work Phone: [facility] 08-13-2023 08:36-0500 Body height 162.56 cm [employer] Kevin Kingston [employer] Work Phone: [facility] 08-13-2023 08:36-0500 Body mass index (BMI) [Ratio] 27.3 kg/m2 [employer] Kevin Kingston [employer] Work Phone: [facility] 08-13-2023 08:36-0500 Body temperature 98.6 [degF] [employer] Kevin Kingston [employer] Work Phone: [facility] 08-13-2023 08:36-0500 Body weight 72.12 kg [employer] Kevin Kingston [employer] Work Phone: [facility] 08-13-2023 08:36-0500 Diastolic blood pressure 81 mm[Hg] [employer] Kevin Kingston [employer] Work Phone: [facility] 08-13-2023 08:36-0500 Heart rate 130 /min [employer] Kevin Kingston [employer] Work Phone: [facility] 08-13-2023 08:36-0500 Respiratory rate 16 /min [employer] Kevin Kingston [employer] Work Phone: [facility] 08-13-2023 08:36-0500 SaO2% (BldA) [Mass fraction] 98 % [employer] Kevin Kingston [employer] Work Phone: [facility] 08-13-2023 08:36-0500 Systolic blood pressure 132 mm[Hg] [employer] Kevin Kingston [employer] Work Phone: [facility] 04-02-2023 08:25-0400 Body height 162.56 cm [employer] Kevin Kingston [employer] Work Phone: [facility] 04-02-2023 08:25-0400 Body mass index (BMI) [Ratio] 26.4 kg/m2 [employer] Kevin Kingston [employer] Work Phone: [facility] 04-02-2023 08:25-0400 Body temperature 98.4 [degF] [employer] Kevin Kingston [employer] Work Phone: [facility] 04-02-2023 08:25-0400 Body weight 69.85 kg [employer] Kevin Kingston [employer] Work Phone: [facility] 04-02-2023 08:25-0400 Diastolic blood pressure 82 mm[Hg] [employer] Kevin Kingston [employer] Work Phone: [facility] 04-02-2023 08:25-0400 Heart rate 82 /min [employer] Kevin Kingston [employer] Work Phone: [facility] 04-02-2023 08:25-0400 Respiratory rate 18 /min [employer] Kevin Kingston [employer] Work Phone: [facility] 04-02-2023 08:25-0400 SaO2% (BldA) [Mass fraction] 97 % [employer] Kevin Kingston [employer] Work Phone: [facility] 04-02-2023 08:25-0400 Systolic blood pressure 146 mm[Hg] [employer] Kevin Kingston [employer] Work Phone: [facility] 02-20-2023 08:28-0400 Body height 162.6 cm Arnol Leonard MD Work Phone: [facility] 02-20-2023 08:28-0400 Body temperature 97.7 [degF] Arnol Leonard MD Work Phone: [facility] 02-20-2023 08:28-0400 Body weight 69.4 kg Arnol Leonard MD Work Phone: [facility] 02-20-2023 08:28-0400 Diastolic blood pressure 74 mm[Hg] Arnol Leonard MD Work Phone: [facility] 02-20-2023 08:28-0400 Heart rate 125 /min Arnol Leonard MD Work Phone: [facility] 02-20-2023 08:28-0400 SaO2% (BldA) [Mass fraction] 99 % Arnol Leonard MD Work Phone: [facility] 02-20-2023 08:28-0400 Systolic blood pressure 128 mm[Hg] Arnol Leonard MD Work Phone: [facility] 12-22-2022 13:01-0400 Body height 162.56 cm [employer] Kevin Kingston [employer] Work Phone: [facility] 12-22-2022 13:01-0400 Body mass index (BMI) [Ratio] 25 kg/m2 [employer] Kevin Kingston [employer] Work Phone: [facility] 12-22-2022 13:01-0400 Body temperature 98.6 [degF] [employer] Kevin Kingston [employer] Work Phone: [facility] 12-22-2022 13:01-0400 Body weight 66.22 kg [employer] Kevin Kingston [employer] Work Phone: [facility] 12-22-2022 13:01-0400 Diastolic blood pressure 80 mm[Hg] [employer] Kevin Kingston [employer]ER Work Phone: [facility] 12-22-2022 13:01-0400 Heart rate 106 /min [employer] Kevin Kingston [employer] ENG[employer]ER Work Phone: [facility] 12-22-2022 13:01-0400 Respiratory rate 18 /min [employer] Kevin Kingston [employer] Work Phone: [facility] 12-22-2022 13:01-0400 SaO2% (BldA) [Mass fraction] 97 % [employer] Kvein Kingston [employer] ENG[employer]ER Work Phone: [facility] 12-22-2022 13:01-0400 Systolic blood pressure 154 mm[Hg] [employer] Kevin Kingston [employer] Work Phone: [facility] 12-19-2022 09:56-0400 Diastolic blood pressure 74 mm[Hg] [facility] 12-19-2022 09:56-0400 Heart rate 109 /min [facility] 12-19-2022 09:56-0400 Respiratory rate 16 /min [facility] 12-19-2022 09:56-0400 SaO2% (BldA) [Mass fraction] 99 % [facility] 12-19-2022 09:56-0400 Systolic blood pressure 118 mm[Hg] [facility] 12-19-2022 07:25-0400 Body height 162.56 cm [facility] 12-19-2022 07:25-0400 Body mass index (BMI) [Ratio] 25.3 kg/m2 [facility] 12-19-2022 07:25-0400 Body temperature 98.1 [degF] [facility] 12-19-2022 07:25-0400 Body weight 66.95 kg [facility] Encounters Encounter Date Encounter Type Care Provider Facility Start: 01-05-2025 End: 01-05-2025 ambulatory Rene Gooden Facility:[facility] Start: 01-05-2025 End: 01-05-[address] Rene Gooden MD -[facility] Work Phone: Start: 12-12-2024 End: 12-12-2024 ambulatory Kevin Kingston [employer] Work Phone: [facility] Work Phone: Start: 12-12-2024 End: 12-12-2024 Patient encounter procedure Roula Berg [employer]C -Laboratory Work Phone: Start: 12-12-2024 End: 12-12-2024 ambulatory Roula Berg [employer] Facility:[facility] Start: 12-02-2024 End: 12-02-2024 ambulatory Kevin Kingston [employer] Work Phone: [facility] Work Phone: Start: 12-02-2024 End: 12-02-2024 Patient encounter procedure Francie Joaquin CNM -Laboratory, Specimen Work Phone: Start: 12-02-2024 End: 12-02-2024 Patient encounter procedure Francie Nuñez CNM -[facility] Work Phone: Start: 12-02-2024 End: 12-02-2024 Patient encounter status Francie Nuñez JOVAN [facility] Start: 12-02-2024 End: 12-02-2024 ambulatory Kevin Kingston [employer] Work Phone: [facility] Work Phone: Start: 12-02-2024 End: 12-02-2024 ambulatory Francie Nuñez Facility:[facility] Start: 11-28-2024 End: 11-28-2024 ambulatory Kevin Kingston [employer] Work Phone: [facility] Work Phone: Start: 11-28-2024 End: 11-28-2024 Patient encounter procedure Roula Berg [employer]INEER-C -[facility] Work Phone: Start: 11-28-2024 End: 11-28-2024 ambulatory Roula De Leons [employer] Facility:[facility] Start: 11-11-2024 End: 11-11-2024 Patient encounter procedure Roula Berg [employer]ER-C -[facility] Work Phone: Start: 11-11-2024 End: 11-11-2024 ambulatory Roula Bristol [employer] Facility[place] Start: 07-07-2024 End: 07-07-2024 ambulatory [facility] Facility:[facility] Start: 07-07-2024 End: 07-07-2024 ambulatory [facility] Facility:[facility] Start: 01-07-2024 End: 01-07-2024 ambulatory [facility] Facility:[facility] Start: 01-07-2024 End: 01-07-2024 ambulatory [facility] Facility:[facility] Start: 08-13-2023 End: 08-13-2023 ambulatory [employer] Kevin Haydenpkins [employer] Work Phone: [facility] Work Phone: Start: 08-13-2023 End: 08-13-2023 Patient encounter procedure [employer] Kevin Kingston [employer] ENGINEER Work Phone: [facility] Work Phone: Start: 06-18-2023 End: 06-18-2023 ambulatory [employer] Kevin Kingston [employer]ER Work Phone: [facility] Work Phone: Start: 06-18-2023 End: 06-18-2023 Patient encounter procedure [employer] Kevin Kingston [employer] Work Phone: [facility]-Laboratory Work Phone: Start: 04-23-2023 End: 04-23-2023 Patient encounter procedure [employer] Kevin Kingston [employer] [facility] Start: 04-02-2023 End: 04-02-2023 Patient encounter procedure [employer] Kevin Kingston [employer] ENGINEER Work Phone: [facility] Work Phone: Start: 03-30-2023 End: 03-30-2023 ambulatory [employer] Kevin Haydenpkins [employer] Work Phone: [facility] Work Phone: Start: 03-30-2023 End: 03-30-2023 Patient encounter procedure [employer] Kevin Kingston [employer] ENGINEER Work Phone: [facility]-Laboratory Work Phone: Start: 02-20-2023 End: 02-20-2023 ambulatory ARNOL LEONARD Facility:[facility] Start: 02-20-2023 End: 02-20-2023 Patient encounter procedure Arnol Leonard MD Work Phone: General Surgery Comment on above: Cellulitis and absce ss of trunk (Primary Dx) Start: 02-12-2023 End: 02-12-2023 Patient encounter procedure WIDE AREA NETWORK ENGINEER-C Kevin Kingston WIDE AREA NETWORK ENGINEER Work Phone: [facility] Work Phone: Start: 01-17-2023 End: 01-17-2023 ambulatory WIDE AREA NETWORK ENGINEER-C Kevin Kingston WIDE AREA NETWORK ENGINEER Work Phone: [facility] Work Phone: Start: 01-17-2023 End: 01-17-2023 Patient encounter procedure WIDE AREA NETWORK ENGINEER-C Kevin Kingston WIDE AREA NETWORK ENGINEER Work Phone: [facility] Work Phone: Start: 12-22-2022 End: 12-22-2022 Patient encounter procedure WIDE AREA NETWORK ENGINEER-C Kevin Kingston WIDE AREA NETWORK ENGINEER Work Phone: [facility] Endocrinology Work Phone: Start: 12-19-2022 End: 12-19-2022 Emergency department patient visit [facility]Emergency Department Procedures Date Procedure Procedure Detail Performing Clinician Start: 12-02-2024 Liquid based cervica l cytology screening Kevin Kingston WIDE AREA NETWORK ENGINEER-C Work Phone: Comment on above: NEGATIVE FOR INTRAEP ITHELIAL LESION OR MALIGNANCY. This liquid based Th inPrep(R) pap test was screened withthe use of an image guided system. Start: 11-28-2024 Bilateral mammography R hipolito Kingston WIDE AREA NETWORK ENGINEER-C Work Phone: Start: 11-28-2024 Ultrasonography of breast Kevin Kingston WIDE AREA NETWORK ENGINEER-C Work Phone: Start: 12-19-2022 Plain chest X-ray Plan of Treatment Date Care Activity Detail Author Start: 12-02-2024 Liquid based cervical cytology screening [facility] Start: 03-23-2023 Influenza vaccination INFLUENZA (#1) [facility] Start: 07-23-2022 DEPRESSION ASSESSMENT DEPRESSION ASSESSMENT [facility] Start: 2022 Mammography MAMMOGRAM [facility] Start: 2012 HPV TESTING HPV TESTING [facility] Start: 2003 PAP TESTING PAP TESTING [facility] Start: 2001 Urine microalbumin profile DTAP,TDAP,TD (1 - Tdap) [facility] Start: 2000 HEPATITIS C SCREENING HEPATITIS C SCREENING [facility] Start: 2000 HIV SCREENING HIV SCREENING [facility] Start: 1982 COVID-19 VACCINE (#1) COVID-19 VACCINE (#1) [facility] Start: 1982 HEPATITIS B (1 of 3 - 3-dose series) HEPATITIS B (1 of 3 - 3-dose series) [facility] Cytology report of Cervical or vaginal smear or scraping Cyto stain.thin prep [facility] Path report.final Dx Spec [facility] Patient Education ED Hyperthyroi dism ED Palpitations ED Tachycardia: PAT [facility] Work Phone: Patient referral [facility] Work Phone: T4 free measurement [facility] T4 free measurement [facility] Thyroid stimulating hormone measurement [facility] Thyroid stimulating hormone measurement [facility] Thyroid stimulating immunoglobulins actual/normal in Serum [facility] Thyroperoxidase Ab [Units/volume] in Serum or Plasma [facility] Triiodothyronine, fr ee measurement [facility] Triiodothyronine, fr ee measurement [facility] Vitamin B12 measurement [facility] Payers Date Payer Category Payer Self-pay [id number] 2024 Self-pay [id number] 2021 Unknown [id number] 2021 Unknown [employer] PPO OOS [id number] 2021-Present [phone] [address] [place] [address] PPO [id number] Unknown [id number] Unknown [id number] Unknown [id number] Unknown [id number] Unknown [id number] Unknown [id number] Unknown [id number] Unknown [id number] Unknown [id number] Unknown [id number] Social History Date Type Detail Facility Start: 12-19-2022 End: 08-13-2023 Tobacco smoking status CTIS Unknown if ever smoked [facility] Start: 1980 Sex Assigned At Female [facility] Start: 02-20-2023 End: 11-11-2024 Tobacco smoking status NHIS Never smoked tobacco [facility] Start: 02-20-2023 Tobacco use and exposure Smokeless tobacco non-user [facility] Start: 02-20-2023 Alcohol intake Current drinke r of alcohol (finding) [facility] Start: 02-20-2023 History of Social function [facility] Start: 02-20-2023 Tobacco use panel [facility] National Score (1-100), lower number is lower risk 71 [facility] Start: 02-20-2023 Tobacco Comment only tried cigarrett es [facility] Start: 08-28-2016 Alcohol Comment occasional [facility] Start: 1980 Sex Assigned At Not on file [facility] NEGATED: Highlighted row [facility] Mental Status Date Assessment Result Facility 12-19-2022 Cognitive function Level Of Cons ciousness Awake;Alert;Appropriate;Follow s Commands [facility] Work Phone: Clinical Notes 02-20-2023 to 11-28-2024 Note Date & Type Note Facility 11-28-2024 Radiology Diagnostic study note [facility] Imaging Services [address] [place] [address] Breast Limited Unilateral MR#: [id number] Acct: [id number] Name: YUDITH PERALES Rep #: [id number] : 1980 F 44 From: Margaret Harris MD PCP: Care Physician,No Primary Status: REG CLI Study:Breast Limited Unilateral Date of Exam: 11/28/24 Exam# [id number] Ordering Dr: Roula Berg WIDE AREA NETWORK ENGINEER WIDE AREA NETWORK ENGINEER-C EXAM: DIAG MAMM W/CAD, BILAT; BREAST LIMITED UNILATERAL; BILAT BRST DEMIAN STAND ALONE 11/28/2024 CLINICAL HISTORY: 44-year-old female presents with palpable concern in the right breast. No family history of breast cancer. TECHNIQUE: Bilateral Diagnostic digital breast tomosynthesis with 2D and 3D images. Computer aided detection. Also, targeted right breast ultrasound was performed. COMPARISON: Baseline examination, no priors. FINDINGS: MAMMOGRAM: TISSUE DENSITY: The breast tissue is heterogenously dense, which may obscure small masses. Right breast: There is a triangle skin marker indicating the area of palpable concern in the right breast. Underlying the skin marker is an circumscribed round mass. Also, there are multiple circumscribed masses scattered throughout the right breast. There are a mass with associated coarse calcifications in the upper-outer right breast at posterior depth. During the examination, the patient had yellowish right nipple discharge. Left breast: There are multiple circumscribed masses scattered throughout the left breast. Otherwise, there are no suspicious findings in the left breast. ULTRASOUND: Ultrasound performed of the area of patient's palpable concern corresponds to a cyst at 11 o'clock 2 cm from the nipple, measuring 3.3 x 1.8 x 1.7 cm. There is a oval circumscribed hypoechoic in the right breast at 10 o'clock 5 cm from the nipple, measuring 1.3 x 1.0 x 0.6 cm. This may correlate to the mass with coarse calcifications in the upper-outer right breast visualized lies mammographically. Also, there is a hypoechoic mass in the retroareolar 3 o'clock right breast measuring 1.0 x 0.6 x 0.6 cm. There are multiple dilated ducts in the retroareolar right breast without evidence of intraductal mass or debris. US/Breast Limited Unilateral IMPRESSION: 1. The patient's area of palpable concern in the right breast correlates to a benign cyst. 2. Probably benign masses in the right breast at 10 o'clock 5 cm from the nipple and 3 o'clock retroareolar. Recommend short interval diagnostic ultrasound of the right breast with in six-months for further evaluation. 3. Dilated ducts in the retroareolar right breast are benign. OVERALL FINAL ASSESSMENT: BIRADS 3 PROBABLY BENIGN. RECOMMENDATION: Short interval follow-up. A letter with findings and recommendations will be mailed to the patient. Reading Location: [facility] CC: JERRY Berg; No Primary Care Physician ~ Director Sales And Marketing: Signed [facility] 11-11-2024 Evaluation note Diagnosis Onset Date Resolution Breast mass, right acute November 11, 2024 8:40am Encounter for routine gynecological examination noneactive December 02, 2024 1:44pm [facility] Work Phone: 1(982) 249-396704-22-2025 Evaluation note* Diagnosis Onset Date Resolution Status Admit Date Breast mass, right acute November 11, 2024 8:40am Encounter for routine gynecological examination noneactive December 022024 1:44pm Thyrotoxicosis chronic January 05, 2025 8:22am [facility] [employer] Work Phone: 1(244) 761-384208-01-2023 NoteHNO ID: [id number] Author: Arnol Leonard MD Service: ? Author Type: Physician Type: Progress Notes Filed: 02/20/2023 8:45 AM Note Text: Subjective: Patient is a 42-year-old female who presents with a cyst in between her bra line. She was started on Bactrim and the area has spontaneously opened and is far less red and painful that it once was. I saw her back in 2017 and performed an incision and drainage of an infected cyst at that time. I have not seen her back since then. Objective:Blood pressure 128/74, pulse (!) 125, temperature 36.5 ?C (97.7 ?F), height 162.6 cm (5' 4), weight 69.4 kg (153 lb), SpO2 99 %. Middle of the breast shows a scar with an open area. Really no cellulitis to speak of but clearly it looks like there has been a abscess that has spontaneously drained on its own. Assessment:Cellulitis and abscess of trunk (primary encounter diagnosis) Plan: I am going to switch her to Levaquin for 10 days I want to see her back in about 2 weeks to see if we are going to be able to do a reexcision of a recurrent sebaceous cyst in this area. I am afraid if I try to do anything at this point we will have to leave it open and let it heal in by secondary intention.[facility]08-01-2023 History of Present illness Narrative* Arnol Leonard MD - 02/20/2023 8:41 AM EDT Subjective: Patient is a 42-year-old female who presents with a cyst in between her bra line. She was started on Bactrim and the area has spontaneously opened and is far less red and painful that it once was. I saw her back in 2017 and performed an incision and drainage of an infected cyst at that time. I have not seen her back since then. Objective:Blood pressure 128/74, pulse (!) 125, temperature 36.5 C (97.7 F), height 162.6 cm (5' 4), weight 69.4 kg (153 lb), SpO2 99 %. Middle of the breast shows a scar with an open area. Really no cellulitis to speak of but clearly it looks like there has been a abscess that has spontaneously drained on its own. Assessment:Cellulitis and abscess of trunk (primary encounter diagnosis) Plan: I am going to switch her to Levaquin for 10 days I want to see her back in about 2 weeks to see if we are going to be able to do a reexcision of a recurrent sebaceous cyst in this area. I am afraid if I try to do anything at this point we will have to leave it open and let it heal in by secondary intention. [facility] Note* Shellie AparicioEUGENIE - 02/20/2023 8:32 AM EDT REVIEW OF SYSTEMS: General: The patient denies fatigue, denies weight loss, denies weight gain, denies feeling hot, and denies feelings of cold. Eyes: The patient denies glaucoma, denies eye injury/surgery, does not wear glasses or contacts. Ear/Nose/Throat: The patient denies allergies, denies hayfever, denies ear infections, and denies bloody noses. Cardiovascular: The patient denies chest pain, denies heart disease, denies high blood pressure,denies cardiac stent, denies prior heart attack, denies irregular heart beat, denies high cholesterol, denies poor circulation, denies heart failure, other cardiac issues, denies claudication, denies cold feet, denies peripheral arterial stent. Respiratory: The patient denies tuberculosis, denies pneumonia, denies frequent cough, denies pulmonary embolism, denies shortness of breath, and denies coughing up blood. Gastrointestinal: The patient denies difficulty swallowing, denies acid reflux, denies ulcers, denies vomiting, denies jaundice/hepatitis, denies gallbladder problems, denies black or tarry stools, denies hemorrhoids, denies bleeding from rectum, denies diverticulitis, denies constipation, denies diarrhea, denies loss of stool control, and denies hernias. Kidney/Bladder: The patient denies kidney stones, denies urine infections, and denies bloody urine. Skin: The patient denies a history of skin cancer, denies bleeding/changing moles, and denies a history of skin rash. Neurologic: The patient denies a history of epilepsy/convulsions, denies headaches, denies head/spinal injuries, and denies stroke/TIA. Psychiatric: The patient denies psychiatric medications, denies depression, and denies voices, denies substance abuse. Endocrine: The patient NOTES thyroid disorders, denies diabetes, and denies hormonal problems. Hematologic: The patient denies a history of bruising, denies bleeding, and denies anemia, denies blood clots. Infections: The patient denies a history of measles and mumps, denies rheumatic fever, and denies sexually transmitted diseases. Musculoskeletal: The patient denies back pain/injury, denies back problems, denies sciatica, deniesknee/foot trouble, denies arthritis, or denies gout. When was patient's last Mammogram screening? None Last Colonoscopy: no prior Shellie Aparicio LPN [facility] noteNo assessment information availableW[facility] Work Phone: Evaluation note* Diagnosis Cellulitis and abscess of trunk- Primary documented in this encounter [facility] note* Diagnosis Onset Date Resolution Status Thyrotoxicosis chronic Paresthesias acute Thyrotoxicosis [facility] Work Phone: Evaluation note* Diagnosis Onset Date Resolution Status Paresthesias acute Thyrotoxicosis [facility] Work Phone: Evaluation note* Diagnosis Onset Date Resolution Status Thyrotoxicosis [facility] Work Phone: Reason for referral (narrative)No reason for referral information availableSanta [facility] Work Phone: Chief Complaint and Reason for Visit Chief Complaint PALPITATIONS Chief Complaint PALPITATIONS Hyperthyroid INT LABS Chief Complaint PALPITATIONS Hyperthyroid INT LABS EORDER E ORDERS 3 M FU Reason for Visit Thyrotoxicosis Paresthesias Thyrotoxicosis Chief Complaint E ORDERS 3 M FU EORDERS E-ORDER Reason for Visit Paresthesias Thyrotoxicosis Chief Complaint EORDERS E-ORDER 4 M FU EORDER Reason for Visit Thyrotoxicosis Chief Complaint Admit Date R breast lump (movable, pea sized) November 11, 2024 8:40am RT BREAST MASS November 28, 2024 8:55am 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) December 02, 2024 1:44p m Reason for Visit Admit Date Breast mass, right November 11, 2024 8:4 0am Encounter for routine gynecological exam ination December 02, 2024 1:44pm Chief Complaint Admit Date R breast lump (movable, pea sized) November 11, 2024 8:40am RT BREAST MASS November 28, 2024 8:55am 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) December 02, 2024 1:44p m 6 M FU January 05, 2025 8:22 am Reason for Visit Admit Date Breast mass, right November 11, 2024 8:4 0am Encounter for routine gynecological exam ination December 02, 2024 1:44pm Thyrotoxicosis January 05, 2025 8:22 am Family History Relationship Condition Age at Onset Recorded Date/T sakshi father Disorder of thyroid Unknown brother Disorder of thyroid Unknown Advance Directives Advance Directive Response Recorded Date/ Time Living Will No December 19, 2022 7 :48am Power of Cutter Operator Tile No December 19, 2022 7:48am Advance Directive Response Recorded Date/ Time Living Will No December 19, 2022 6 :48am Power of Cutter Operator Tile No December 19, 2022 6:48am Summary Purpose Additional Source Comments Care Teams (unrecognized sec tion and content) Team Status: Active Member Role Status Dates Kevin Kingston WIDE AREA NETWORK ENGINEER, WIDE AREA NETWORK ENGINEER-C Primary Care Provider Active Team Status: Inactive Member Role Status Dates Kevin Kingston WIDE AREA NETWORK ENGINEER, WIDE AREA NETWORK ENGINEER-C Primary Care Provider Active Dr. Shelly Candelario DO Emergency Provider Active Team Status: Inactive Member Role Status Dates Kevin Kingston WIDE AREA NETWORK ENGINEER, WIDE AREA NETWORK ENGINEER-C Primary Care Provider, Referring Provider Active Dr. Rene Gooden MD Attending Provider Active Team Status: Inactive Member Role Status Dates Kevin Kingston WIDE AREA NETWORK ENGINEER, WIDE AREA NETWORK ENGINEER-C Primary Care Provider Active Dr. Shelly Candelario DO Attending Provider, Emergency Pro vider Active Team Status: Inactive Member Role Status Dates Kevin Kingston WIDE AREA NETWORK ENGINEER, WIDE AREA NETWORK ENGINEER-C Primary Care Provider Active Dr. Rene Gooden MD Attending Provider, Referring Provi ruth ann Active Coding Quality Analyst Relationship Specialty Start Date End Date Kevin Kingston, RAPHAEL [address] [place] [id number] PCP - General Family Medicine 08/18/16 Team Status: Active Member Role Status Dates No Primary Care Physician Primary Care Provider Active Team Status: Inactive Member Role Status Dates Kevin Kingston WIDE AREA NETWORK ENGINEER, WIDE AREA NETWORK ENGINEER-C Primary Care Provider Active Start: November 11, 2024 End: November 11, 2024 Kevin Kingston WIDE AREA NETWORK ENGINEER, WIDE AREA NETWORK ENGINEER-C Referring Provider Ac tive Start: November 11, 2024 End: November 11, 2024 Roula Berg WIDE AREA NETWORK ENGINEER, WIDE AREA NETWORK ENGINEER-C Attending Provider Active Start: November 11, 2024 End: November 11, 2024 Team Status: Active Member Role Status Dates Roula Berg WIDE AREA NETWORK ENGINEER, WIDE AREA NETWORK ENGINEER-C Attending Provider Active Start: November 28, 2024 Roula Berg WIDE AREA NETWORK ENGINEER, WIDE AREA NETWORK ENGINEER-C Referring Provider Active Start: November 28, 2024 No Primary Care Physician Primary Care Provider Active Start: November 28, 2024 Team Status: Inactive Member Role Status Dates Kevin Kingston WIDE AREA NETWORK ENGINEER, WIDE AREA NETWORK ENGINEER-C Referring Provider Ac tive Start: December 02, 2024 End: December 02, 2024 No Primary Care Physician Primary Care Provider Active Start: December 02, 2024 End: December 02, 2024 Francie Nuñez CNM Attending Provider Active S tart: December 02, 2024 End: December 02, 2024 Team Status: Inactive Member Role Status Dates Roula Berg WIDE AREA NETWORK ENGINEER, WIDE AREA NETWORK ENGINEER-C Attending Provider Active Start: November 28, 2024 End: November 28, 2024 Roula Berg WIDE AREA NETWORK ENGINEER, WIDE AREA NETWORK ENGINEER-C Referring Provider Active Start: November 28, 2024 End: November 28, 2024 No Primary Care Physician Primary Care Provider Active Start: November 28, 2024 End: November 28, 2024 Team Status: Active Member Role Status Dates No Primary Care Physician Primary Care Provider Active Start: December 02, 2024 Francie Nuñez CNM Attending Provider Active S tart: December 02, 2024 Francie Nuñez CNM Referring Provider Active S tart: December 02, 2024 Team Status: Inactive Member Role Status Dates No Primary Care Physician Primary Care Provider Active Start: December 02, 2024 End: December 02, 2024 Francie Nuñez CNM Attending Provider Active S tart: December 02, 2024 End: December 02, 2024 Francie Nuñez CNM Referring Provider Active S tart: December 02, 2024 End: December 02, 2024 Team Status: Inactive Member Role Status Dates No Primary Care Physician Primary Care Provider Active Start: December 12, 2024 End: December 12, 2024 Roula Berg WIDE AREA NETWORK ENGINEER, WIDE AREA NETWORK ENGINEER-C Attending Provider Active Start: December 12, 2024 End: December 12, 2024 Roula Berg NP, WIDE AREA NETWORK ENGINEER-C Referring Provider Active Start: December 12, 2024 End: December 12, 2024 Team Status: Inactive Member Role Status Dates Kevin Kingston WIDE AREA NETWORK ENGINEER, WIDE AREA NETWORK ENGINEER-C Referring Provider Zenon milton Start: January 05, 2025 End: January 05, 2025 Dr. Rene Gooden MD Attending Provider Active Sta rt: January 05, 2025 End: January 05, 2025 No Primary Care Physician Primary Care Provider Active Start: January 05, 2025 End: January 05, 2025 Goals (unrecognized section and content) Goals may be documented in a n alternate sectionGoals may be documented in an alternate sectionGoals may be documented in an alternate sectionGoals may be documented in an alternate sectionGoals may be documented in an alternate sectionGoals may be documented in an alternate sectionGoals may be documented in an alternate sectionGoals may be documented in an alternate sectionGoals may be documented in an alternate sectionGoals may be documented in an alternate section Source Comments (unrecognize d section and content) In the event this informatio n is protected by the Federal Confidentiality of Alcohol and Drug Abuse Patient Records regulations: The Federal rules restrict any use of the information to criminally investigate or prosecute any alcohol or drug abuse patient.[facility] Reason for Visit (unrecogniz ed section and content) Reason Comments Consult Cyst around bra line INFORMATION SOURCE (unrecogn ized section and content) DATE CREATED AUTHOR 02/20/2023 [facility] DATE CREATED AUTHOR 'S ORGANIZ ATION 01/05/2025 [facility] FOR RECORDS PERTAINING TO PATIENTS WHO ARE OR HAVE BEEN ENROLLED IN A CHEMICAL DEPENDENCY/SUBSTANCEABUSE PROGRAM, SOME INFORMATION MAY BE OMITTED. This clinical summary was aggregated from multiple sources. Caution should be exercised in using it in the provision of clinical care. This summary normalizes information from multiple sources, and as a consequence, information in this document may materially change the coding, format and clinical context of patient data. In addition, data may be omitted in some cases. CLINICAL DECISIONS SHOULD BE BASED ON THE PRIMARY CLINICAL RECORDS. [facility] [facility]. provides no warranty or guarantee of the accuracy or completeness of information in this document.
[2025-01-08 07:07] LABS: Thyroid Peroxidase AB 25 IU/mL (0-34); Thyroid Stim Immunoglob 0.28 IU/L (0.00-0.55)
== END | disposition home or self-care (01) ==
PROVIDERS: Referring Provider Internal Medicine Endocrinology, Diabetes & Metabolism; Visit Provider Internal Medicine Endocrinology, Diabetes & Metabolism
DX: E05.00 Thyrotoxicosis with diffuse goiter without thyrotoxic crisis or storm (principal)
CPT/HCPCS: 36415; 84439; 84443; 84445; 84481; 86376

== ENCOUNTER → 2025-06-01 | Outpatient (CLI) | payer BC, SELFPAY ==
--- NOTE | 2025-06-01 12:51 | US_ITS ---
PROCEDURE: BREAST LIMITED UNILATERAL 06/01/2025 REASON FOR EXAM: F, Age 44 y/o , ABNORMAL MAMOGRAM- REPEAT 6MONTHS Right breast mass. Solid mass. Short-term follow-up exam. Evaluate. Document stability. COMPARISON: Breast ultrasound dated 11/28/2024 and mammogram dated 11/28/2024 TECHNIQUE: Procedure Code: USBRSTLIMIT Modality: US Procedure: BREAST LIMITED UNILATERAL FINDINGS: There is a stable, solid, hypoechoic mass in the right breast at the 10 o'clock, 5 cm from nipple position measuring 13 x 9 x 6 mm. This mass is wider than it is tall and does not produce any posterior shadowing. The mass has smooth margins. The previously noted solid mass in the retroareolar region at the 3 o'clock position on the prior ultrasound examination is not identified on today's study. There are several benign-appearing cysts identified in the retroareolar region. The 2 largest cysts measure 2.2 x 1.5 x 1.3 cm and 1.5 x 1.4 by 0.8 cm. US/Breast Limited Unilateral IMPRESSION: There is a benign-appearing stable solid mass in the right breast. The other s olid mass seen previously seen at the 3 o'clock retroareolar region was not identified on the images submitted for review today . It is recommended that the larger cysts be aspirated. This will make interpretation of future mammograms easier as well a s make it easier to interpret the breast tissue to exclude underlying masses. The patient should also return in November [address] in[address] yearly screening mammography. BI-RADS 2: BENIGN RECOMMENDATION: Routine annual follow-up in 1 Year Reading Location: [id number]
== END | disposition home or self-care (01) ==
PROVIDERS: PCP Nurse Practitioner Family; Referring Provider Nurse Practitioner Women's Health; Visit Provider Nurse Practitioner Women's Health
DX: N63.11 Unspecified lump in the right breast, upper outer quadrant (principal)
CPT/HCPCS: 76642

== ENCOUNTER → 2025-07-06 | Outpatient (CLI) | payer BC, SELFPAY ==
[2025-07-06 10:12] LABS: Free T3 3.2 pg/mL (2.18-3.98)
== END | disposition home or self-care (01) ==
LOC: LAB 09:06
PROVIDERS: PCP Nurse Practitioner Family; Referring Provider Internal Medicine Endocrinology, Diabetes & Metabolism; Visit Provider Internal Medicine Endocrinology, Diabetes & Metabolism
DX: E05.00 Thyrotoxicosis with diffuse goiter without thyrotoxic crisis or storm (principal)
CPT/HCPCS: 36415; 84439; 84443; 84481